=== PATIENT | male | born 1970 | race Caucasian/White ===

== ENCOUNTER → 2017-06-27 10:32 | Outpatient (CLI) | payer MEDICAID, SELFPAY ==
[2017-06-27 13:49] LABS: Basophils # 0.1 K/mm3 (0-0.2); Eosinophils # 0.4 K/mm3 (0.0-0.4); Eosinophils % 3.9 % (0.1-12.0); Hemoglobin 16.5 g/dL (14.1-18.0); Lymphocytes % 22.2 K/mm3 (10-50); Mean Corpuscular Hemoglobin 29.3 pg (27.0-31.2); Mean Corpuscular Volume 88.8 fl (80-94); Mean Platelet Volume 7.9 fl (7.4-10.4); Monocytes # 0.4 K/mm3 (0.1-1.0); Monocytes % 4.5 % (1.7-9.3); Neutrophils # 6.2 K/mm3 (1.8-7.8); Neutrophils % 68.5 % (37.0-80.0); Platelet Count 229 K/mm3 (142-424); Red Blood Count 5.63 M/mm3 (4.60-6.20); Red Cell Distribution Width 14.1 % (11.5-17.5)
[2017-06-27 14:11] LABS: Alanine Aminotransferase 51 U/L (12-78); Albumin Level 4.3 gm/dL (3.4-5.0); Albumin/Globulin Ratio 1.2 (1.1-1.8); Alkaline Phosphatase 124 U/L (46-116); Anion Gap 15.5 mEq/L (5-15); Aspartate Amino Transferase 20 U/L (15-37); Bilirubin,Total 0.6 mg/dL (0.2-1.0); Blood Urea Nitrogen 13 mg/dL (7-18); Calcium 9.5 mg/dL (8.5-10.1); Carbon Dioxide 25 mmol/L (21.0-32.0); Chloride 101 mmol/L (98-107); Chol/HDL Ratio 7.4 (1-3.5); Cholesterol 305 mg/dL (140-200); Creatinine,Serum 1.02 mg/dL (0.70-1.30); Estimated Glomerular Filt Rate 79 ml/min (>60); GFR (African American) 96 ML/MIN (>60); Globulin 3.7 gm/dl (1.3-3.2); Glucose 202 mg/dL (74-106); HDL Cholesterol 41 mg/dL (27-67); Potassium 4.5 mmoL/L (3.5-5.1); Sodium 137 mmol/L (136-145)
[2017-06-27 14:12] LABS: Triglycerides 481 mg/dL (30-200)
[2017-06-27 14:43] LABS: Hemoglobin A1C 7.5 % (0.0-7.0)
[2017-06-28 18:25] LABS: Testosterone,Total 369 ng/dL (264-916)
[2017-06-28 18:26] LABS: Vitamin B12 980 pg/mL (232-1245)
== END ==
PROVIDERS: PCP Internal Medicine Adolescent Medicine; Visit Provider Internal Medicine Adolescent Medicine
DX: E11.9 Type 2 diabetes mellitus without complications (principal); R53.83 Other fatigue; E78.5 Hyperlipidemia, unspecified
CPT/HCPCS: 36415; 80053; 80061; 82607; 83036; 84403; 85025

== ENCOUNTER 2017-08-01 13:00 | Outpatient (RCR) | payer MEDICAID, SELFPAY | END 2017-08-01 16:53 | disposition home or self-care (01) | LOC: PT 13:00 | PROVIDERS: PCP Internal Medicine Adolescent Medicine; Visit Provider Physician Assistant Medical | DX: S32.409A Unspecified fracture of unspecified acetabulum, initial encounter for closed fracture (principal); S52.023A Displaced fracture of olecranon process without intraarticular extension of unspecified ulna, initial encounter for closed fracture | CPT/HCPCS: 97110 ==

== ENCOUNTER → 2017-11-28 11:38 | Outpatient (CLI) | payer MEDICAID, SELFPAY ==
--- NOTE | 2017-11-28 11:46 | XR_ITS ---
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 Mild multilevel degenerative disc disease from L1 to L5 worse at L2-L3 with mild multilevel osteophyte formation at L2-L3 and L4. There is slight decrease in height anteriorly of T12 T11 and L1. This may be developmental. There are no previous exams available for comparison. Postsurgical changes are present with bone plates along the left ilium and ischium. No lytic or blastic change. IMPRESSION: Degenerative disc disease with osteophytosis, no acute finding
== END ==
PROVIDERS: PCP Internal Medicine Adolescent Medicine; Visit Provider Internal Medicine Adolescent Medicine
DX: M54.5 Low back pain (principal)
CPT/HCPCS: 72110

== ENCOUNTER → 2017-12-30 12:45 | Outpatient (POV) | payer MEDICAID, SELFPAY ==
[2017-12-30 13:06] VITALS: BP 110/79; PULSE 95; RESP 18; O2SAT 98
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
== END ==
PROVIDERS: PCP Internal Medicine Adolescent Medicine; Visit Provider Clinical Nurse Specialist Family Health
DX: M51.16 Intervertebral disc disorders with radiculopathy, lumbar region (principal); M25.78 Osteophyte, vertebrae; V89.2XXA Person injured in unspecified motor-vehicle accident, traffic, initial encounter
CPT/HCPCS: 99202

== ENCOUNTER → 2018-01-09 10:24 | Outpatient (CLI) | payer MEDICAID, SELFPAY ==
--- NOTE | 2018-01-09 10:26 | MR_ITS ---
MR lumbar spine wo con, MR 3-d myelogram/MRCP HISTORY: PT states low back pain . ITS.REASON: BACK PAIN ORDERING PHYSICIAN: Nayeli Servin PATIENT AGE: 47 years Comparison: X-RAY 11/28/17 TECHNIQUE: Standard multiplanar multiecho sequences are performed without contrast. 3-D MIP and myelographic images are also rendered and reviewed FINDINGS: There is normal alignment. The spinal cord ends at the T12-L1 level. T11-T12 and T12-L1 have an unremarkable appearance. L1-L2: Mild degenerative disc disease with minimal concentric bulging disc with mild bilateral foraminal narrowing. L2-L3: Degenerative disc disease with concentric bulging disc with mild facet and ligamentum flavum hypertrophy with mild bilateral foraminal narrowing. Small endplate osteophytes are present anteriorly. L3-L4: Degenerative disc disease with concentric bulging disc along with facet and ligamentum flavum hypertrophy left greater than right severe left-sided foraminal narrowing and moderate to severe right foraminal narrowing along with left lateral recess narrowing. There is some mild impingement upon the left L4 nerve root from the lateral recess narrowing as well as impingement upon the exiting L3 nerve root on the left. Type I endplate changes are present at this level with a Schmorl's node along the inferior endplate of L3 and superior endplate of L4. There is very minimal right paracentral disc protrusion also abutting the right L4 nerve root. L4-L5: Degenerative disc disease with bulging disc and minimal central disc protrusion slightly eccentric toward the right along with facet and ligamentum flavum hypertrophy with moderate to severe right foraminal narrowing and moderate left foraminal narrowing. Schmorl's node is present along the superior endplate of L5.. There is mild bilateral foraminal narrowing. L5-S1: Concentric bulging disc with minimal right foraminal disc protrusion Artifact is present from orthopedic hardware in the left pelvis. IMPRESSION: 1. Abnormal MRI of the lumbar spine with multilevel degenerative disc disease along with bulging and protruding discs are and facet and ligamentum flavum hypertrophy with foraminal lateral recess narrowing. Please above for detailed description at each level 2. Degenerative disc disease at L3-L4 with concentric bulging disc along with facet and ligamentum flavum hypertrophy left greater than right severe left-sided foraminal narrowing and moderate to severe right foraminal narrowing along with left lateral recess narrowing. There is some mild impingement upon the left L4 nerve root from the lateral recess narrowing as well as impingement upon the exiting L3 nerve root on the left. Type I endplate changes are present at this level with a Schmorl's node along the inferior endplate of L3 and superior endplate of L4. There is very minimal right paracentral disc protrusion also abutting the right L4 nerve root
== END ==
PROVIDERS: PCP Internal Medicine Adolescent Medicine; Visit Provider Clinical Nurse Specialist Family Health
DX: M54.5 Low back pain (principal)
CPT/HCPCS: 72148; 76376

== ENCOUNTER → 2018-01-20 13:17 | Outpatient (POV) | payer MEDICAID, SELFPAY ==
[2018-01-20 13:30] VITALS: BP 169/90; PULSE 87; RESP 18; O2SAT 98; BMI 36.5
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
== END ==
PROVIDERS: PCP Internal Medicine Adolescent Medicine; Visit Provider Clinical Nurse Specialist Family Health
DX: M51.16 Intervertebral disc disorders with radiculopathy, lumbar region (principal); M48.061 Spinal stenosis, lumbar region without neurogenic claudication
CPT/HCPCS: 99213

== ENCOUNTER → 2018-02-24 13:01 | Outpatient (POV) | payer MEDICAID, SELFPAY ==
[2018-02-24 13:41] VITALS: BP 135/86; PULSE 80; RESP 18; O2SAT 98; BMI 34.4
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
== END ==
PROVIDERS: PCP Internal Medicine Adolescent Medicine; Visit Provider Clinical Nurse Specialist Family Health
DX: M51.16 Intervertebral disc disorders with radiculopathy, lumbar region (principal)
CPT/HCPCS: 99213

== ENCOUNTER → 2018-04-29 10:21 | Outpatient (POV) | payer MEDICAID, SELFPAY ==
[2018-04-29 10:38] VITALS: BP 133/84; PULSE 82; RESP 18; O2SAT 98; BMI 34.4
--- NOTE | 2018-04-29 10:56 | HMH.PAINSOAP ---
[facility] Pain Management SOAP Note Subjective:: Patient is a pleasant 47-year-old white male who presents today for follow-up after his lumbar epidural steroid injection. Patient did not have much relief with this. Patient has been deemed not a surgical candidate by his neurosurgeon. Patient has completed physical therapy with no success. Patient continues a home stretching program. Patient is on anti-inflammatories along with gabapentin 300 mg 1 p.o. 3 times daily. Patient does have an MRI showing nerve impingement. Along with degenerative disc disease. He rates his pain a 8 out of 10. Patient and I had a long discussion in regards to intrathecal therapy. Patient interested in pursuing this. I do believe it would be beneficial for him given his age. I have concerns with oral opioids at this time due to potential systemic dysfunction long-term. ROS General: no recent weight change, no fever, no sleep disturbances Respiratory: no cough, no shortness of air, no recurring pulmonary infections Cardiovascular/Peripheral Vascular: No chest pain, No palpitations, no edema, no shortness of breath. Gastrointestinal: no incontinence, normal bowel movements reported Genitourinary: no incontinence Musculoskeletal: Back pain, leg pain Psychiatric: normal mood/ affect Neurological: [denies weakness in extremities], [denies balance issues] Objective:: Physical Exam General: Alert and oriented x3, no acute distress, pleasant and cooperative, [on room air] Lungs: Resps E/U, Symmetrical chest expansion, Eyes: PERRL Musculoskeletal: Flexion and extension of lumbar spine somewhat guarded secondary to pain, deep tendon reflexes normal, strength in upper and lower extremities [5/5], slightly antalgic gait noted, positive straight leg raise test bilaterally at 30 degrees Neurological: speech clear, high lift operator equal, no gross sensory deficits Assessment:: Degenerative disc disease lumbar spine with lumbar radiculopathy, disc bulge, nerve impingement Plan:: We will start the process of getting approved for intrathecal pain pump trial. I believe this would metal for him. Patient will go for psychological evaluation. I will follow-up with him after this. This note was dictated using voice recognition software and may contain errors or omissions
== END ==
PROVIDERS: PCP Internal Medicine Adolescent Medicine; Visit Provider Clinical Nurse Specialist Family Health
DX: M51.16 Intervertebral disc disorders with radiculopathy, lumbar region (principal); G54.4 Lumbosacral root disorders, not elsewhere classified
CPT/HCPCS: 99213

== ENCOUNTER → 2018-07-21 14:07 | Outpatient (POV) | payer MEDICAID, SELFPAY ==
--- NOTE | 2018-07-21 15:00 | HMH.PAINSOAP ---
[facility] Pain Management SOAP Note Subjective:: Patient is a pleasant 47-year-old white male who presents today for follow-up. Patient has had multiple injections with no relief. He has been deemed not a surgical candidate by his neurosurgeon. He is completed physical therapy with no success. Patient continues a home stretching program. He is on anti-inflammatories along with gabapentin. Patient has an MRI showing nerve impingement along with degenerative disc disease. He rates his pain a 8 out of 10. Patient and I had a long discussion in regards to intrathecal therapy would like to pursue this. Patient was set up for a cytological evaluation however he was unable to make the appointment. We will reschedule this for him. ROS General: no recent weight change, no fever, no sleep disturbances Respiratory: no cough, no shortness of air, no recurring pulmonary infections Cardiovascular/Peripheral Vascular: No chest pain, No palpitations, no edema, no shortness of breath. Gastrointestinal: no incontinence, normal bowel movements reported Genitourinary: no incontinence Musculoskeletal: Back pain, leg pain Psychiatric: normal mood/ affect Neurological: [denies weakness in extremities], [denies balance issues] Objective:: Physical Exam General: Alert and oriented x3, no acute distress, pleasant and cooperative, [on room air] Lungs: Resps E/U, Symmetrical chest expansion, Eyes: PERRL Musculoskeletal: Flexion and extension of lumbar spine somewhat guarded secondary to pain, deep tendon reflexes normal, strength in upper and lower extremities [5/5], [abnormal gait noted] Neurological: speech clear, photographer news equal, no gross sensory deficits Assessment:: Degenerative disc disease lumbar spine with lumbar radiculopathy, disc bulge, nerve impingement Plan:: We will start the process of getting approved for intrathecal pain pump trial. I believe this would be beneficial for him. Patient will get set up for psychological evaluation and we will follow-up with him after this. We will increase his gabapentin to 800 mg 1 p.o. 3 times daily. Patient has had no side effects to this medication. Dr. Oconnor has reviewed this note and agrees with this plan of care. This note was dictated using voice recognition software and may contain errors or omissions
[2018-07-21 15:02] VITALS: BP 143/74; PULSE 79; RESP 18; O2SAT 98; BMI 33.7
--- NOTE | 2018-07-22 08:34 | P.CONS_ITS ---
[facility] Pain Management SOAP Note Subjective:: Patient is a pleasant 47-year-old white male who presents today for follow-up. Patient has had multiple injections with no relief. He has been deemed not a surgical candidate by his neurosurgeon. He is completed physical therapy with no success. Patient continues a home stretching program. He is on anti- inflammatories along with gabapentin. Patient has an MRI showing nerve impingement along with degenerative disc disease. He rates his pain a 8 out of 10. Patient and I had a long discussion in regards to intrathecal therapy would like to pursue this. Patient was set up for a cytological evaluation however he was unable to make the appointment. We will reschedule this for him. ROS General: no recent weight change, no fever, no sleep disturbances Respiratory: no cough, no shortness of air, no recurring pulmonary infections Cardiovascular/Peripheral Vascular: No chest pain, No palpitations, no edema, no shortness of breath. Gastrointestinal: no incontinence, normal bowel movements reported Genitourinary: no incontinence Musculoskeletal: Back pain, leg pain Psychiatric: normal mood/ affect Neurological: [denies weakness in extremities], [denies balance issues] Objective:: Physical Exam General: Alert and oriented x3, no acute distress, pleasant and cooperative, [on room air] Lungs: Resps E/U, Symmetrical chest expansion, Eyes: PERRL Musculoskeletal: Flexion and extension of lumbar spine somewhat guarded secondary to pain, deep tendon reflexes normal, strength in upper and lower extremities [5/5], [abnormal gait noted] Neurological: speech clear, mattress finisher equal, no gross sensory deficits Assessment:: Degenerative disc disease lumbar spine with lumbar radiculopathy, disc bulge, nerve impingement Plan:: We will start the process of getting approved for intrathecal pain pump trial. I believe this would be beneficial for him. Patient will get set up for psychological evaluation and we will follow-up with him after this. We will increase his gabapentin to 800 mg 1 p.o. 3 times daily. Patient has had no side effects to this medication. Dr. Oconnor has reviewed this note and agrees with this plan of care. This note was dictated using voice recognition software and may contain errors or omissions
== END ==
PROVIDERS: PCP Internal Medicine Adolescent Medicine; Visit Provider Clinical Nurse Specialist Family Health
DX: M51.16 Intervertebral disc disorders with radiculopathy, lumbar region (principal); G54.9 Nerve root and plexus disorder, unspecified
CPT/HCPCS: 99213

== ENCOUNTER → 2018-09-30 08:18 | Outpatient (POV) | payer MEDICAID, SELFPAY ==
[2018-09-30 08:29] VITALS: BP 133/79; PULSE 68; RESP 18; O2SAT 98; BMI 33.0
--- NOTE | 2018-09-30 15:22 | HMH.PAINSOAP ---
[facility] Pain Management SOAP Note Subjective:: Patient is a very pleasant 48-year-old white male who presents today for follow-up after his intrathecal pain pump trial. Patient has done extremely well patient in the past has had no pain relief after injections, physical therapy, medications, anti-inflammatories, gabapentin, home stretching programs. Patient is continuing his home stretching program. Patient states he got 90% relief with his intrathecal pain pump trial for several hours. He states he is much more functional. He is interested in moving forward with a implant. Patient is an appropriate psychological candidate for it. Patient had an increase in his range of motion post trial. He is not a surgical candidate. He is not on any anticoagulation therapy. ROS General: no recent weight change, no fever, no sleep disturbances Respiratory: no cough, no shortness of air, no recurring pulmonary infections Cardiovascular/Peripheral Vascular: No chest pain, No palpitations, no edema, no shortness of breath. Gastrointestinal: no incontinence, normal bowel movements reported Genitourinary: no incontinence Musculoskeletal: Back pain, leg pain Psychiatric: normal mood/ affect, [denies depression], [denies anxiety] Neurological: [denies weakness in extremities], [denies balance issues] Objective:: Physical Exam General: Alert and oriented x3, no acute distress, pleasant and cooperative, [on room air] Lungs: Resps E/U, Symmetrical chest expansion, Eyes: PERRL Musculoskeletal: Flexion and extension of lumbar spine somewhat guarded secondary to pain, deep tendon reflexes normal, strength in upper and lower extremities [5/5], [abnormal gait noted] Neurological: speech clear, suture winder hand equal, no gross sensory deficits Assessment:: Degenerative disc disease lumbar spine with lumbar radiculopathy, disc bulge, nerve impingement Plan:: We will move forward with a permanent implant of the intrathecal pain pump. Patient is not on any narcotic medications at this time. We will start him on morphine 0.25 mg/day. I will follow-up with him after this reassess his symptoms at that time. Dr. Oconnor has reviewed this note and agrees with this plan of care. This note was dictated using voice recognition software and may contain errors or omissions
[2018-09-30 15:24] LABS: Amphetamine/Metha Screen,Urine Negative ng/mL (<1000); Barbiturates Screen,Urine Negative ng/mL (<200); Benzodiazepines Screen,Urine Negative ng/mL (<200); Cannabinoid Screen,Urine Positive ng/mL (<50); Cocaine Screen,Urine Negative ng/mL (<300); Methadone Screen,Urine Negative ng/mL (<300); Opiate Screen,Urine Negative ng/mL (<300); Phencyclidine Screen,Urine Negative ng/mL (<25)
--- NOTE | 2018-09-30 15:25 | P.CONS_ITS ---
[facility] Pain Management SOAP Note Subjective:: Patient is a very pleasant 48-year-old white male who presents today for follow- up after his intrathecal pain pump trial. Patient has done extremely well patient in the past has had no pain relief after injections, physical therapy, medications, anti-inflammatories, gabapentin, home stretching programs. Patient is continuing his home stretching program. Patient states he got 90% relief with his intrathecal pain pump trial for several hours. He states he is much more functional. He is interested in moving forward with a implant. Patient is an appropriate psychological candidate for it. Patient had an increase in his range of motion post trial. He is not a surgical candidate. He is not on any anticoagulation therapy. ROS General: no recent weight change, no fever, no sleep disturbances Respiratory: no cough, no shortness of air, no recurring pulmonary infections Cardiovascular/Peripheral Vascular: No chest pain, No palpitations, no edema, no shortness of breath. Gastrointestinal: no incontinence, normal bowel movements reported Genitourinary: no incontinence Musculoskeletal: Back pain, leg pain Psychiatric: normal mood/ affect, [denies depression], [denies anxiety] Neurological: [denies weakness in extremities], [denies balance issues] Objective:: Physical Exam General: Alert and oriented x3, no acute distress, pleasant and cooperative, [on room air] Lungs: Resps E/U, Symmetrical chest expansion, Eyes: PERRL Musculoskeletal: Flexion and extension of lumbar spine somewhat guarded secondary to pain, deep tendon reflexes normal, strength in upper and lower extremities [5/5], [abnormal gait noted] Neurological: speech clear, marketing instructor equal, no gross sensory deficits Assessment:: Degenerative disc disease lumbar spine with lumbar radiculopathy, disc bulge, nerve impingement Plan:: We will move forward with a permanent implant of the intrathecal pain pump. Patient is not on any narcotic medications at this time. We will start him on morphine 0.25 mg/day. I will follow-up with him after this reassess his symptoms at that time. Dr. Oconnor has reviewed this note and agrees with this plan of care. This note was dictated using voice recognition software and may contain errors or omissions
[2018-10-08 13:52] LABS: Opiates Negative (Cutoff=100)
== END ==
PROVIDERS: PCP Internal Medicine Adolescent Medicine; Visit Provider Clinical Nurse Specialist Family Health
DX: M51.16 Intervertebral disc disorders with radiculopathy, lumbar region (principal); M25.80 Other specified joint disorders, unspecified joint; Z79.899 Other long term (current) drug therapy
CPT/HCPCS: 80305; 80361; 80365; 99212; G0480

== ENCOUNTER → 2018-10-28 13:44 | Outpatient (POV) | payer MEDICAID, SELFPAY ==
[2018-10-28 13:57] VITALS: BP 168/106; PULSE 97; RESP 20; O2SAT 99; BMI 33.2
--- NOTE | 2018-10-28 14:06 | HMH.PMPROC ---
- Procedure Date: 10/28/18 Time: 14:06 Anesthesiologist:: Nayeli Servin APRN Complications:: None Pre-procedure Diagnosis:: Degenerative disc disease lumbar spine with lumbar radiculopathy Post-procedure Diagnosis:: Same Indications for Procedure:: Patient is a pleasant 48-year-old white male who presents today for follow-up after intrathecal pain pump implantation 1 week ago. Patient's wound VAC was removed incision site healing well no sign symptoms of infection. Stitches are being left in for an additional 2 weeks. He is currently on a morphine dose of 0.25 mg/day. He denies any side effects. We will set his PTC up today. He rates his pain a 6 out of 10 but states it is much better and it was previously. 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 The patient was taken to the procedure room where noninvasive monitoring was placed including noninvasive blood pressure cuff and pulse oximeter. Patient's pump was interrogated and reprogrammed. The infusion rate was left at 0.25 mg of morphine a day and his PTC was set up at 0.025 mg every 6 hours as needed. The patient tolerated the procedure well. Plan and Disposition:: I will see the patient back in 2 weeks for his stitches to be removed. I will follow-up with him at this time. He is been instructed to call our office if he has any issues prior to his next appointment. Dr. Oconnor has reviewed this note and agrees with this plan of care. This note was dictated using voice recognition software and may contain errors or omissions
== END ==
PROVIDERS: PCP Internal Medicine Adolescent Medicine; Visit Provider Clinical Nurse Specialist Family Health
DX: M51.16 Intervertebral disc disorders with radiculopathy, lumbar region (principal)
CPT/HCPCS: 62368

== ENCOUNTER → 2018-11-11 13:15 | Outpatient (POV) | payer MEDICAID, SELFPAY ==
[2018-11-11 13:40] VITALS: BP 147/96; PULSE 84; RESP 18; O2SAT 97; BMI 33.7
--- NOTE | 2018-11-11 14:01 | HMH.PAINSOAP ---
[facility] Pain Management SOAP Note Subjective:: Patient is a pleasant 48-year-old white male who presents today for intrathecal pain pump implantation follow-up he is doing extremely well he rates his pain a 1 out of 10. Patient is currently on a infusion rate of 0.25 mg of morphine a day and he has a PTC with every 6 hour as needed boluses set at 0.025 mg per time. Patient's TERESA #[id number] reviewed and appropriate. Patient denies side effects to his medication. Patient's sutures have been removed and his incision looks well-healed. ROS General: no recent weight change, no fever, no sleep disturbances Respiratory: no cough, no shortness of air, no recurring pulmonary infections Cardiovascular/Peripheral Vascular: No chest pain, No palpitations, no edema, no shortness of breath. Gastrointestinal: no incontinence, normal bowel movements reported Genitourinary: no incontinence Musculoskeletal: Back pain, leg pain Psychiatric: normal mood/ affect Neurological: [denies weakness in extremities], [denies balance issues] Objective:: Physical Exam General: Alert and oriented x3, no acute distress, pleasant and cooperative, [on room air] Lungs: Resps E/U, Symmetrical chest expansion, Eyes: PERRL Musculoskeletal: Flexion and extension of lumbar spine somewhat guarded secondary to pain, deep tendon reflexes normal, strength in upper and lower extremities [5/5], slightly antalgic gait noted Neurological: speech clear, burglar alarm installer equal, no gross sensory deficits Assessment:: Degenerative disc disease lumbar spine with lumbar radiculopathy Plan:: We will see the patient back at his next intrathecal pain pump refill and reprogram. He has been instructed to call the office if he has any issues prior to his next appointment. Dr. Oconnor has reviewed this note and agrees with this plan of care. This note was dictated using voice recognition software and may contain errors or omissions
--- NOTE | 2018-11-11 14:04 | P.CONS_ITS ---
[facility] Pain Management SOAP Note Subjective:: Patient is a pleasant 48-year-old white male who presents today for intrathecal pain pump implantation follow-up he is doing extremely well he rates his pain a 1 out of 10. Patient is currently on a infusion rate of 0.25 mg of morphine a day and he has a PTC with every 6 hour as needed boluses set at 0.025 mg per time. Patient's TERESA #[id number] reviewed and appropriate. Patient denies side effects to his medication. Patient's sutures have been removed and his incision looks well-healed. ROS General: no recent weight change, no fever, no sleep disturbances Respiratory: no cough, no shortness of air, no recurring pulmonary infections Cardiovascular/Peripheral Vascular: No chest pain, No palpitations, no edema, no shortness of breath. Gastrointestinal: no incontinence, normal bowel movements reported Genitourinary: no incontinence Musculoskeletal: Back pain, leg pain Psychiatric: normal mood/ affect Neurological: [denies weakness in extremities], [denies balance issues] Objective:: Physical Exam General: Alert and oriented x3, no acute distress, pleasant and cooperative, [on room air] Lungs: Resps E/U, Symmetrical chest expansion, Eyes: PERRL Musculoskeletal: Flexion and extension of lumbar spine somewhat guarded secondary to pain, deep tendon reflexes normal, strength in upper and lower extremities [5/5], slightly antalgic gait noted Neurological: speech clear, tenter frame back tender equal, no gross sensory deficits Assessment:: Degenerative disc disease lumbar spine with lumbar radiculopathy Plan:: We will see the patient back at his next intrathecal pain pump refill and reprogram. He has been instructed to call the office if he has any issues prior to his next appointment. Dr. Oconnor has reviewed this note and agrees with this plan of care. This note was dictated using voice recognition software and may contain errors or omissions
== END ==
PROVIDERS: PCP Internal Medicine Adolescent Medicine; Visit Provider Clinical Nurse Specialist Family Health
DX: M51.16 Intervertebral disc disorders with radiculopathy, lumbar region (principal)
CPT/HCPCS: 99212

== ENCOUNTER → 2018-12-02 10:07 | Outpatient (POV) | payer MEDICAID, SELFPAY ==
[2018-12-02 10:08] VITALS: BP 161/95; PULSE 85; RESP 18; O2SAT 98; BMI 33.7
--- NOTE | 2018-12-02 10:59 | P.PCN_ITS ---
- Procedure Date: 12/02/18 Time: 10:56 Anesthesiologist:: Cristina Barnes APRN Complications:: None Pre-procedure Diagnosis:: Degenerative disc disease lumbar spine with lumbar radiculopathy Post-procedure Diagnosis:: Same Indications for Procedure:: Patient is a pleasant 48-year-old white male who presents today for intrathecal pain pump adjustment. He is currently on an infusion rate of 0.25 mg of morphine a day and has a PTC with every 6 hour as needed boluses set at 0.025 mg. Patient says he does not use his PTC that often, only using it to to 3 times a day. He does report that he is having increased pain due to increased activity. He would like an increase in his medication today. He denies any side effects to medications. His incision does look good, and is well-healed. 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 Patient was taken to the procedure room where noninvasive monitoring was placed including noninvasive blood pressure cuff and pulse oximeter. Patient's pump was interrogated and was reprogrammed to 0.1 mg morphine per day.. The patient tolerated the procedure well with no complications. Plan and Disposition:: We will see the patient back at his next intrathecal pain pump refill and reprogram. He is been instructed to call the office if he has any issues prior to his next appointment. Dr. Oocnnor has reviewed this note and agrees with this plan of care. This note was dictated using voice recognition software and make contain errors or omissions.
== END ==
PROVIDERS: PCP Internal Medicine Adolescent Medicine; Visit Provider Clinical Nurse Specialist Family Health
DX: M51.16 Intervertebral disc disorders with radiculopathy, lumbar region (principal)
CPT/HCPCS: 62368

== ENCOUNTER → 2019-04-09 11:53 | Outpatient (CLI) | payer MEDICAID, SELFPAY ==
[2019-04-09 14:36] LABS: Amphetamine/Metha Screen,Urine Negative ng/mL (<1000); Barbiturates Screen,Urine Negative ng/mL (<200); Benzodiazepines Screen,Urine Negative ng/mL (<200); Cannabinoid Screen,Urine Positive ng/mL (<50); Cocaine Screen,Urine Negative ng/mL (<300); Methadone Screen,Urine Negative ng/mL (<300); Opiate Screen,Urine Negative ng/mL (<300); Phencyclidine Screen,Urine Negative ng/mL (<25)
[2019-04-15 19:11] LABS: Cannabinoid Positive (.); Carboxy THC (GC/MS) 129 ng/mL (Cutoff=10)
[2019-04-16 08:12] LABS: Opiates Negative (Cutoff=100)
== END ==
PROVIDERS: Visit Provider Clinical Nurse Specialist Family Health
DX: Z79.899 Other long term (current) drug therapy (principal)
CPT/HCPCS: 80305; 80349; 80361; 80365; G0480

== ENCOUNTER → 2020-07-19 09:44 | Outpatient (POV) | payer OTHER, SELFPAY ==
[2020-07-19 09:51] VITALS: BP 148/88; PULSE 74; RESP 18; TEMP 36.8; O2SAT 99; BMI 33.0
--- NOTE | 2020-07-19 10:05 | P.CONS_ITS ---
[facility] Pain Management SOAP Note Subjective:: Patient presents today for follow-up. Patient has intrathecal pain pump. He has had 2 inappropriate drug screens with illegal drugs he has been counseled both times in regards to this. Patient was seen last in February at our [place] location where he was filled. Patient states he forgot when his appointment wants to have it refilled and states that he did not know the phone number since then he has pump has run empty. He was on 0.67 mg of morphine. Patient states that he is gone through withdrawal and has been taking somebody's Percocet along with smoking marijuana. At this point I discussed with him that this is a breech of our contract were not can be able to provide any further m edicinal care. Patient is frustrated and upset stating that he is in excruciating pain I offered that he is welcome to go to the emergency room and he agreed. I did speak to Dr. Ty in regards to this. And he is agreeable with the discharge. Objective:: Physical Exam General: Alert and oriented x3, no acute distress, pleasant and cooperative, [on room air] Lungs: Resps E/U, Symmetrical chest expansion, Eyes: PERRL Musculoskeletal: Flexion and extension of her spine somewhat guarded secondary to pain, deep tendon reflexes normal, strength in upper and lower extremities [5/5], [abnormal gait noted] Neurological: speech clear Assessment:: Degenerative disc disease lumbar spine lumbar radiculopathy Plan:: Patient will be discharged from the clinic. Patient left and went to the ER. ER was contacted. We will also contact his primary care physician. I did offer to give the patient names of other pain physicians at this time he stated that I can give that to his primary care. Patient states that he needs to have his pain pump filled today I discussed with him that that would not happen regard less of where he establish care. Dr. Oconnor has reviewed this note and agrees with this plan of care. This note was dictated using voice recognition software and may contain errors or omissions [facility] History I have reviewed the patient's past medical history: Yes Medical History: Reports:: Anxiety, Depression, Diabetes Mellitus Type 2, Hyperlipidemia, Hypertension Denies:: Cancer, Diabetes Mellitus Type 1, Internal Pacemaker, MRSA, Seizures *Have you ever received a pneumonia vaccine?: Yes *Have you received a flu vaccine this season?: Yes Other Medical History: Reports: Other (Obesity). Denies: Blood Transfusion Reaction Laterality Cases: Left: Other Other Surgeries: Yes: Other (Left arm ORIF, Left hip ORIF). No: Pacemaker Amputation: No Fractures: No - *Social History Smoking Status: Never smoker Alcohol Intake: never *Occupational Status:: other Housing: house Household Members: none *Travel in the last 8 weeks: None - Psychiatric History Pschychiatric History:: Reports:: Anxiety, Depression Family Hx:: Coronary Artery Disease, Heart Attack, Hypertension
== END ==
PROVIDERS: PCP Internal Medicine Adolescent Medicine; Visit Provider Clinical Nurse Specialist Family Health
DX: M51.16 Intervertebral disc disorders with radiculopathy, lumbar region (principal); Z45.1 Encounter for adjustment and management of infusion pump
CPT/HCPCS: 99212; G0463

== ENCOUNTER 2020-07-19 10:11 | Emergency (ER) | payer OTHER, SELFPAY ==
--- NOTE | 2020-07-19 10:16 | HMH.EDGENADL ---
ED Disposition Clinical Impression: Lumbar back pain Disposition: Home, Self-Care Condition on Discharge: Good Instructions: DI for Low Back Pain, DI for Chronic Pain -- Adult Additional Instructions: You have been evaluated for low back pain. Please take anti-inflammatories as prescribed. Use Lidoderm patches. Use heat, stretching, exercises. Follow-up with your primary care physician before the end of the week. Follow-up with pain clinic for intrathecal medication. Return to the emergency department for any new or worsening symptoms. Prescriptions: Ibuprofen [Ibuprofen 600mg Tablet] 600 mg PO Q8 #21 tab Transmission Status: Pending to [facility] # Lidocaine [Lidoderm] 1 each TP DAILY #10 adh..patch Transmission Status: Pending to [facility] # Referrals: Vish Barakat MD [Primary Care Provider] - Time of Disposition: - Critical Care Critical Care Time: No Attestation: On , the high probability of a clinically significant, sudden or life threatening deterioration of the following system(s) required my full and direct attention, intervention and personal management. The time I documented below is in addition to time spent performing reported procedures but includes the following listed in this critical care notation. Medical Decision Making - Medical Records Medical records reviewed: Yes: I reviewed the patient's medical records. - Terrance Inquiry Pt receiving controlled substance: Yes Terrance was queried for this patient: Yes Reference #:: [id number] Risks and benefits of using a controlled substance: were discussed with pt by me Vital Signs: 07/19/20 10:18 Temperature 98.6 F Temperature Source Oral Pulse Rate [Left Radial] 114 H Respiratory Rate 20 Blood Pressure [Right Arm] 152/99 H Blood Pressure Mean [Right Arm] 116 Blood Pressure Source [Right Arm] Automatic Cuff Blood Pressure Position [Right Arm] Sitting 02 Sat by Pulse Oximetry 98 Oxygen Delivery Method Room Air - Lab Data Lab Results 07/19/20 10:42: Urine Opiates Screen Negative, Urine Methadone Screen Negative, Ur Barbituates Screen Negative, Ur Phencyclidine Scrn Negative, Ur Amphetamines Screen Negative, U Benzodiazepines Scrn Negative, Urine Cocaine Screen Negative, U Marijuana (THC) Screen Positive H 07/19/20 10:42: Urine Color Yellow, Urine Appearance Clear, Urine pH 6.0, Ur Specific [place] 1.025, Urine Protein Negative, Urine Glucose (UA) 3+, Urine Ketones Trace, Urine Blood Negative, Urine Nitrate Negative, Urine Bilirubin Negative, Urine Urobilinogen 0.2, Ur Leukocyte Esterase Negative, Urine WBC 3-5, Ur Squamous Epith Cells 3-5 Orders (Tests/Meds): ED MEDICATIONS Discontinued Medications Generic Name Dose Route Start Last Admin Trade Name Nichole PRN Reason Stop Dose Admin Ketorolac Tromethamine 15 mg 07/19/20 10:31 07/19/20 10:39 Ketorolac 30mg/Ml Vial IM 07/19/20 10:32 15 mg ONCE ONE Administration Lidocaine 1 each 07/19/20 10:31 07/19/20 10:40 Lidocaine 5% Transdermal Patch TP 07/19/20 10:32 1 each ONCE ONE Administration - Radiology Data #1 Image(s): L-Spine Image Reviewed: Yes I reviewed the patient's radiology results mri 2017 IMPRESSION: 1. Abnormal MRI of the lumbar spine with multilevel degenerative disc disease along with bulging and protruding discs are and facet and ligamentum flavum hypertrophy with foraminal lateral recess narrowing. Please above for detailed description at each level 2. Degenerative disc disease at L3-L4 with concentric bulging disc along with facet and ligamentum flavum hypertrophy left greater than right severe left-sided foraminal narrowing and moderate to severe right foraminal narrowing along with left lateral recess narrowing. There is some mild impingement upon the left L4 nerve root from the lateral recess narrowing as well as impingement upon the exiting L3 nerve root on the left. Type I endplate change
[2020-07-19 10:18] VITALS: BP 152/99; PULSE 114; RESP 20; TEMP 37; O2SAT 98; BMI 32.0
--- NOTE | 2020-07-19 10:20 | PC.NURSE ---
Pt in restroom at this time.
[2020-07-19 10:47] LABS: Microscopic, Urine URINE MICROSCOPIC (MICROSCOPIC)
[2020-07-19 10:49] LABS: Appearance,Urine CLEAR (Clear); Bilirubin,Urine Negative (Negative); Blood, Urine Negative (Negative); Color,Urine YELLOW (Yellow); Glucose,Urine (UA) 3+ (Negative); Ketones,Urine TRACE (Negative); Leukocyte Esterase,Urine Negative (Negative); Nitrate,Urine Negative (Negative); Protein,Urine Negative (Negative); Specific Gravity, Urine 1.025 (1.005-1.030); Urobilinogen,Urine 0.2 EU/dl (0.2)
[2020-07-19 11:01] LABS: Benzodiazepines Screen,Urine Negative ng/ml (<200)
[2020-07-19 11:02] LABS: Amphetamine/Metha Screen,Urine Negative ng/ml (<1000)
[2020-07-19 11:03] LABS: Barbiturates Screen,Urine Negative ng/ml (<200); Cannabinoid Screen,Urine Positive ng/ml (<50)
[2020-07-19 11:04] LABS: Cocaine Screen,Urine Negative ng/ml (<300); Methadone Screen,Urine Negative ng/ml (<300)
[2020-07-19 11:05] LABS: Opiate Screen,Urine Negative ng/ml (<300)
[2020-07-19 11:06] LABS: Phencyclidine Screen,Urine Negative ng/ml (<25)
[2020-07-19 11:30] VITALS: BP 147/92; PULSE 104; RESP 18; TEMP 36.7; O2SAT 97
== END 2020-07-19 11:32 | disposition home or self-care (01) ==
PROVIDERS: Emergency Provider Emergency Medicine; PCP Internal Medicine Adolescent Medicine
DX: M54.16 Radiculopathy, lumbar region (principal); E11.9 Type 2 diabetes mellitus without complications; I10 Essential (primary) hypertension; E78.5 Hyperlipidemia, unspecified; F41.8 Other specified anxiety disorders; F12.10 Cannabis abuse, uncomplicated; Z79.899 Other long term (current) drug therapy
CPT/HCPCS: 80305; 81001; 96372; 99282

== ENCOUNTER → 2020-10-10 08:27 | Outpatient (CLI) | payer OTHER, SELFPAY ==
[2020-10-11 09:22] LABS: Hemoglobin A1C > 14.0 % (4.0-6.0)
== END ==
PROVIDERS: Visit Provider Internal Medicine Adolescent Medicine
DX: E11.9 Type 2 diabetes mellitus without complications (principal); Z79.84 Long term (current) use of oral hypoglycemic drugs
CPT/HCPCS: 83036

== ENCOUNTER 2025-02-25 09:23 | Inpatient (IN) | payer OTHER, SELFPAY ==
--- OUTSIDE RECORDS SUMMARY | 2024-07-17 09:00 | XMS_ITS ---
Author Organization [facility] Address [address] [place] [address] Care Team Providers Care Animal Nutrition Consultant Name Role Phone Reyes Landers II Unavailable Oliva, Ciaran Unavailable [phone] REASON FOR VISIT pump refill Encounters Encounter Location Date Provider Diagnosis [facility] [address] [place] [address] 07/17/2024 Reyes Landers Plan Of Treatment Next Appt Details Provider Name:Reyes faustin, 06/18/2025 01:00:00 PM, [address], [address], [place], [address], Provider Name:Reyes faustin, 06/18/2025 03:30:00 PM, [address], [address], [place], [address], Progress Notes * Jeffery RONQUILLO ADOB:[birth year] (54 yo M)Acc No.[id number]:07/17/2024 Patient: Larry ETTA Jeffery Gaytan Provider: Mike Landers II, M.D. :1970 A ge:54 Y S ex:Male Date:07/17/2024 Address:[address], [place] Subjective: * Chief Complaints: * 1 . Pump refill. * Medical History: Objective: * Vitals: Assessment: Plan: * Treatment: * * Electronic signature of Can Landers II, M.D. on 02/26/2025 at 12:00 PM CDT Sign off status: Pending * Provider: Mike Landers II, M.D. Date: 07/17/2024 Generated for Zohra poole/Angelica/Kristopher on: 0 02/26/2025 12:00 PM CDT
--- OUTSIDE RECORDS SUMMARY | 2024-07-17 09:00 | XMS_ITS ---
Author Organization [facility] Address [address] [place] [address] Care Team Providers Care Checkman Name Role Phone Reyes Landers II Unavailable [phone] Oliva, Ciaran Unavailable [phone] REASON FOR VISIT pump refill Encounters Encounter Location Date Provider Diagnosis [facility] [address] [place] [address] 07/17/2024 Reyes Landers Plan Of Treatment Next Appt Details Provider Name:Reyes faustin, 06/18/2025 01:00:00 PM, [address], [address], [place], [address], Provider Name:Reyes faustin, 06/18/2025 03:30:00 PM, [address], [address], [place], [address], Progress Notes * Jeffery RONQUILLO ADOB:[birth year] (54 yo M)Acc No.[id number]:07/17/2024 Patient: Larry ETTA Jeffery Gaytan Provider: Mike Landers II, M.D. :1970 A ge:54 Y S ex:Male Date:07/17/2024 Address:[address], [place] Subjective: * Chief Complaints: * 1 . Pump refill. * Medical History: Objective: * Vitals: Assessment: Plan: * Treatment: * * Electronic signature of Can Landers II, M.D. on 02/25/2025 at 08:39 AM CDT Sign off status: Pending * Provider: Mike Landers II, M.D. Date: 0 07/17/2024 Generated for Zohra poole/Angelica/Kristopher on: 0 02/25/2025 08:39 AM CDT
--- OUTSIDE RECORDS SUMMARY | 2024-11-06 09:30 | XMS_ITS ---
Author Organization [facility] ex Address [address] [place] [address] Care Team Providers Care Math Tutor Name Role Phone Reyes Landers II Unavailable Oliva, Ciaran Unavailable [phone] REASON FOR VISIT pump refill Encounters Encounter Location Date Provider Diagnosis [facility] [address] [place] [address] 11/06/2024 Reyes Landers Plan Of Treatment Next Appt Details Provider Name:Reyes faustin, 06/18/2025 01:00:00 PM, [address], [address], [place], [address], Provider Name:Reyes faustin, 06/18/2025 03:30:00 PM, [address], [address], [place], [address], Progress Notes * Jeffery RONQUILLO ADOB:[birth year] (54 yo M)Acc No.[id number]:11/06/2024 Patient: Larry ETTA Jeffery Gaytan Provider: Mike [...] 0 11/06/2024 Generated for Zohra poole/Angelica/Kristopher on: 0 02/25/2025 08:39 AM CDT
--- OUTSIDE RECORDS SUMMARY | 2024-11-06 09:30 | XMS_ITS ---
Author Organization [facility] Address [address] [place] [address] Care Team Providers Care Acrobatic Rigger Name Role Phone Reyes Landers II Unavailable Oliva, Ciaran Unavailable [phone] REASON FOR VISIT pump refill Encounters Encounter Location Date Provider Diagnosis [facility] [address] [place] [address] 11/06/2024 Reyes Landers Plan Of Treatment Next Appt Details Provider Name:Reyes faustin, 06/18/2025 01:00:00 PM, [address], [address], [place], [address], Provider Name:Reyes faustin, 06/18/2025 03:30:00 PM, [address], [address], [place], [address], Progress Notes * Jeffery RONQUILLO ADOB:[birth year] (54 yo M)Acc No.[id number]:11/06/2024 Patient: Larry ETTA Jeffery Gaytan Provider: Mike Landers II, M.D. :1970 A ge:54 Y S ex:Male Date:11/06/2024 Address:[address], [place] Subjective: * Chief Complaints: * 1 . Pump refill. * Medical History: Objective: * Vitals: Assessment: Plan: * Treatment: * * Electronic signature of Can Landers II, M.D. on 02/26/2025 at 12:01 PM CDT Sign off status: Pending * Provider: Mike Landers II, M.D. Date: 0 11/06/2024 Generated for Zohra poole/Angelica/Kristopher on: 0 02/26/2025 12:01 PM CDT
--- OUTSIDE RECORDS SUMMARY | 2025-02-19 11:30 | XMS_ITS ---
Author Organization [facility] ex Address [address] [place] [address] Care Team Providers Care Party Plan Sales Consultant Name Role Phone Reyes Landers II Unavailable [phone] Oliva, Ciaran Unavailable [phone] REASON FOR VISIT Pump Follow Up Encounters Encounter Location Date Provider Diagnosis [facility] [address] [place] [address] 02/19/2025 Reyes Landers Plan Of Treatment Next Appt Details Provider Name:Reyes faustin, 06/18/2025 01:00:00 PM, [address], [address], [place], [address], Provider Name:Reyes faustin, 06/18/2025 03:30:00 PM, [address], [address], [place], [address], Progress Notes * Jeffery RONQUILLO ADOB:[birth year] (54 yo M)Acc No.[id number]:02/19/2025 FollowUP Patient: Larry ETTA Jeffery Gaytan Provider: Mike Landers II, M.D. :1970 A ge:54 Y S ex:Male Date:02/19/2025 Address:[address], [place] Subjective: * Chief Complaints: * 1 . Pump Follow Up. * Medical History: Objective: * Vitals: Assessment: Plan: * Treatment: * * Electronic signature of Can Landers II, M.D. on 02/25/2025 at 08:40 AM CDT Sign off status: Pending * Provider: Mike Landers II, M.D. Date: 02/19/2025 Generated for Zohra poole/Angelica/Kristopher on: 0 02/25/2025 08:40 AM CDT
--- OUTSIDE RECORDS SUMMARY | 2025-02-19 11:30 | XMS_ITS ---
Author Organization [facility] ex Address [address] [place] [address] Care Team Providers Care Lapping Machine Operator Name Role Phone Reyes Landers II Unavailable Oliva, Ciaran Unavailable [phone] REASON FOR VISIT Pump Follow Up Encounters Encounter Location Date Provider Diagnosis [facility] [address] [place] [address] 02/19/2025 Reyes Landers Plan Of Treatment Next Appt Details Provider Name:Reyes faustin, 06/18/2025 01:00:00 PM, [address], [address], [place], [address], Provider Name:Reyes faustin, 06/18/2025 03:30:00 PM, [address], [address], [place], [address], Progress Notes * Jeffery RONQUILLO ADOB:[birth year] (54 yo M)Acc No.[id number]:02/19/2025 FollowUP Patient: Larry ETTA Jeffery Gaytan Provider: [...] 02/19/2025 Generated for Zohra poole/Angelica/Kristopher on: 0 02/26/2025 12:01 PM CDT
--- OUTSIDE RECORDS SUMMARY | 2025-02-24 09:30 | XMS_ITS ---
Author Organization [facility] Address [address] [place] [address] Care Team Providers Care Balloon Artist Name Role Phone Reyes Landers II Unavailable [phone] Oliva, Ciaran Unavailable [phone] REASON FOR VISIT pump refill Encounters Encounter Location Date Provider Diagnosis [facility] [address] [place] [address] 02/24/2025 Reyes Landers Plan Of Treatment Next Appt Details Provider Name:Reyes faustin, 06/18/2025 01:00:00 PM, [address], [address], [place], [address], Provider Name:Reyes faustin, 06/18/2025 03:30:00 PM, [address], [address], [place], [address], Progress Notes * Jeffery RONQUILLO ADOB:[birth year] (54 yo M)Acc No.[id number]:02/24/2025 Patient: Larry ETTA Jeffery Gaytan Provider: Mike [...] * Provider: Mike Landers II, M.D. Date: 02/24/2025 Generated for Zohra poole/Angelica/Kristopher on: 0 02/26/2025 12:01 PM CDT
--- OUTSIDE RECORDS SUMMARY | 2025-02-24 09:30 | XMS_ITS ---
Author Organization [facility] ex Address [address] [place] [address] Care Team Providers Care Hand Embroiderer Name Role Phone Reyes Landers II Unavailable Oliva, Ciaran Unavailable [phone] REASON FOR VISIT pump refill Encounters Encounter Location Date Provider Diagnosis [facility] [address] [place] [address] 02/24/2025 Reyes Landers Plan Of Treatment Next Appt Details Provider Name:Reyes faustin, 06/18/2025 01:00:00 PM, [address], [address], [place], [address], Provider Name:Reyes faustin, 06/18/2025 03:30:00 PM, [address], [address], [place], [address], Progress Notes * Jeffery RONQUILLO ADOB:[birth year] (54 yo M)Acc No.[id number]:02/24/2025 Patient: Larry ETTA Jeffery Gaytan Provider: Mike [...] 0 02/24/2025 Generated for Zohra poole/Angelica/Kristopher on: 0 02/25/2025 08:39 AM CDT
[2025-02-25] VITALS (21 sets, daily range): BP systolic 152–213; BP diastolic 82–121; PULSE 97–121; RESP 10–18; TEMP 36.1–37.1; O2SAT 96–100; BMI 28.4; BMI 28.0
--- NOTE | 2025-02-25 09:38 | PC.NURSE ---
PAGED DR KING FOR DR TAYLOR
--- NOTE | 2025-02-25 09:40 | XR_ITS ---
FINAL REPORT CLINICAL HISTORY: R great toe infection, PT STATED HE GOT A SPINTER ON THE DORSAL PART OF THE GREAT TOE ON SATURDAY AND REDNESS AND SWELLING HAS GOTTEN WORSE , PT IS A TYPE 2 DIABETIC FINDINGS: RIGHT FOOT Three views were obtained. There is an age-indeterminate fracture at the head of the first proximal phalanx. 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 No bone destruction is identified. There is soft tissue edema of the medial forefoot. No foreign body is identified. IMPRESSION: Age-indeterminate fracture at the head of the first proximal phalanx. No evidence of osteomyelitis. Soft tissue edema, could represent cellulitis. Reviewed, Interpreted and Dictated by Zuleika Hernandez MD Transcribed by Bethany Dumont Authenticated and [facility]
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
--- NOTE | 2025-02-25 09:43 | PC.NURSE ---
FSBS 340
--- OUTSIDE RECORDS SUMMARY | 2025-02-25 09:43 | XMS_ITS | Clinical Summary ---
Author Organization [facility] Address [address] [place] [address] Care Team Providers Care Printed Circuit Boards Stripper Etcher Name Role Phone Provider, No Known Primary Care Provider Unavail able Medications * This document contains information received from the source organization and may not represent a complete record from that organization. No known medications Active Problems No known active problems Social History Tobacco Use Types Packs/Day Years Used Date Smoking Tobacco: Never Assessed Abuse Screen Answer Date Recorded Unsafe at Home or Work/School Not on file Feels Threatened by Someone? Not on file 05/2023 Does Anyone Keep You from Co ntacting Others or Doint Things Outside the Home? Not on file 03/14/2023 Physical Sign of Abuse Present Not on file 1 Housing Stability Answer Date Recorded Current Living Arrangements Not on file 03/03 Potentially Unsafe Housing Conditions Not on young e 03/14/2023 Family and Community Support Answer Jesús e Recorded Help with Day-to-Day Activities Not on file 03/14/2023 Lonely or Isolated Not on file 03/14/2023 Employment Answer Date Recorded Do you want help finding or keeping work or a raiza b? Not on file 03/14/2023 Disabilities Answer Date Recorded Concentrating, Remembering, or Making Decisions Difficulty Not on file 03/14/2023 Doing Errands Independently Difficulty Not on fi le 03/14/2023 Education Answer Date Recorded Help with school or training? Not on file Preferred Language Not on file 03/14/2023 Sex and Gender Information Value Date Recorded Sex Assigned at Not on file Legal Sex Male 10:47 AM EST Gender Identity Not on file Sexual Orientation Not on file Plan of Treatment Health Maintenance Due Date Last Done Comments TDAP/TD VACCINES (1 - Tdap) 1991 COLOGUARD 2017 COLON CANCER SCREENING 5 YEAR SIGMOIDOSCOPY 2017 COLONOSCOPY [address] CANCER SCREENING 2017 [address] COLONOGRAPHY 2017 FECAL OCCULT BLOOD TEST 2017 FIT Testing (1 year) 2017 ANNUAL PHYSICAL 09/08/2018 HEPATITIS C SCREENING 09/08/2018 Pneumococcal Vaccine 50+ (1 of 1 - PCV) 2022 ZOSTER VACCINE (1 of 2) 2022 INFLUENZA VACCINE 01/01/2025 Insurance [employer] Care Teams Printed Circuit Boards Stripper Etcher Relationship Specialty Start Date End Date Provider, [place] [address] PCP - General 07/23/18
--- OUTSIDE RECORDS SUMMARY | 2025-02-25 09:43 | XMS_ITS | Clinical Summary ---
Author Organization Healthcare Address [address] [place] [address] Care Team Providers Care Building Certifier Name Role Phone Vish Barakat MD Primary Care Provider + [phone] Family History Medical History Relation Name Comments Conversions - Other Father Back pro blem Hypertension Father Heart attack Mother Conversions - Other Other 1 Back pro blem Hypertension Other 2 Heart attack Other 3 Relation Name Status Comments Father Mother Other 1 Other 2 Other 3 Social History Tobacco Use Types Packs/Day Years Used Date Smoking Tobacco: Former Sex and Gender Information Value Date Recorded Sex Assigned at Not on file Legal Sex Male 6:29 PM EDT Gender Identity Not on file Sexual Orientation Not on file Last Filed Vital Signs Vital Sign Reading Time Taken Comments Blood Pressure 126/81 12/17/2018 10:51 AM EDT Pulse 86 12/17/2018 10:51 AM EDT Temperature 36.9 C (98.5 F) 11/20/2017 9:56 AM EDT Respiratory Rate 20 12/17/2018 10:51 AM EDT Oxygen Saturation - - Inhaled Oxygen Concentration - - Weight 123 kg (271 lb 4.1 oz) 12/17/2018 10:51 A M EDT Height 195.6 cm (6' 5 ) 12/17/2018 10:51 AM EDT Body Mass Index 32.17 12/17/2018 10:51 AM EDT Plan of Treatment Not on file Care Teams Building Certifier Relationship Specialty Start Date End Date Vish Barakat MD [address] [place] [address] PCP - General 10/14/20
--- OUTSIDE RECORDS SUMMARY | 2025-02-25 09:43 | XMS_ITS | Patient Health Record ---
Author Organization [facility] Address [address] [place] [address] Care Team Providers Care Fingerprint Expert Name Role Phone Reyes Landers II Unavailable Oliva, Ciaran Unavailable [phone] Allergies No Known Allergies Reason For Referral No Information Medications Medication SIG (Take, Route, Fr equency, Duration) Notes Start Date End Date Status citalopram 20 mg 1 tab(s) orally once a day; Duration: 30 day(s) 10/12/2020 Active lisinopril 5 mg ; Duration: 90 Active metFORMIN 1000 mg 1 tab(s) orally 2 ti mes a day; Duration: 30 day(s) 10/12/2020 Active pantoprazole 40 mg 1 tab(s) orally once a day; Duration: 30 day(s) Active citalopram 40 mg 1 tab(s) orally once a day; Duration: 30 day(s) 10/12/2020 Active atorvastatin 80 mg 1 tab(s) orally once a day; Duration: 30 day(s) 10/12/2020 Active Social History Tobacco Use: Social History Observation Description Date Details (start date - stop date) Former Smoker NA - NA Smoking-PQRS Question Answer Notes Are you a: former smoker Vital Signs Heart Rate 65 /min 03/25/2024 Blood pressure diastolic 85 mm Hg 03/25/2024 Height 72 in 03/25/2024 Blood pressure systolic 140 mm Hg 03/25/2024 Weight 250 lbs 03/25/2024 BMI 33.90 kg/m2 03/25/2024 Encounters Encounter Location Date Provider Diagnosis [facility] [address] [place] [address] 03/25/2024 Reyes Landers [facility] [address] [place] [address] 07/17/2024 Reyes Landers [facility] [address] [place] [address] 11/06/2024 Reyes Landers [facility] [address] [place] [address] 02/24/2025 Reyes Landers [facility] [address] [place] [address] 03/25/2024 Reyes Landers Other usp (current) drug therapy Z79.899 [facility] [address] [facility] [address] [place] [address] 11/06/2024 Reyes Landers Other resource conservation specialist (current) drug therapy Z79.899 Assessments Encounter Date Diagnosis (ICD Code) Assessment Notes Treatment Notes Treatment Clinical Notes Section Notes 11/06/2024 Other resource conservation specialist (current) drug therapy (ICD-10 - Z79.899) 03/25/2024 1. Continue ITP therapy 2. come back on Refill date Mr. Ronquillo returns today for office visit. He had his pain pump refilled today. He has been stable on his current dose of medicine for quite some time now. 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 He has continued to lose some weight and is quite pleased with his activity level no changes were made in the infusion rate of 0.6 mg/day of morphine. 03/25/2024 Other resource conservation specialist (current) drug therapy (ICD-10 - Z79.899) 03/25/2024 1. Continue ITP therapy 2. come back on Refill date Mr. Ronquillo returns today for office visit. He had his pain pump refilled today. He has been stable on his current dose of medicine for quite some time now. 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 His weight is down to 230 pounds from a high of 320 pounds when the pump was implanted. We are no longer prescribing any supplemental medications and consequently I can follow him on a more remote basis with I doing the pain pump refills unless changes need to be made. Plan Of Treatment Pending Test Test Name Order Date Urine Test ANALYZER 03/25/2024 Urine Test ANALYZER 11/06/2024 Next Appt Details Provider Name:Reyes Carr roxie, 06/18/2025 01:00:00 PM, [address], [place], [address], Provider Name:Reyes Carr roxie, 06/18/2025 03:30:00 PM, [address], [address], [place], [address], Insurance Providers Payer Name Payer Address Payer Phone Subscriber Number Group Number Insured Name Patient Relationship to Insured Coverage Start Date Coverage End Date R [id number] [address] [address] [place] [address] [id number] [phone] [id number] Jeffery Ronquillo Self - patient is the insured 4 Medical (General) History Medical History History ICD Code High cholesterol Diabetes Depression Anxiety Surgical History Surgery Date(Month/Year) ITP placement/ Dr. Oconnor surgery on LT arm/ [facility] 2016 surgery on pelvis/ [facility] 2016 Hospitalization History Reason Date(Month/Year) Stayed at after surgeries 2016
--- NOTE | 2025-02-25 09:47 | PC.NURSE ---
RT AWARE OF VBG
--- NOTE | 2025-02-25 09:48 | PC.NURSE ---
PT TRANSPORTED TO RADIOLOGY
[2025-02-25 09:52] LABS: Hematocrit 44.8 % (42.0-52.0); Hemoglobin 15.6 g/dL (14.1-18.0); Immature Granulocytes % 0.7 %; Mean Corpuscular HGB Conc 34.8 g/dL (31.8-35.4); Mean Corpuscular Hemoglobin 29.9 pg (27.0-31.2); Mean Corpuscular Volume 86.0 fl (80-94); Nucleated Red Blood Cells % 0 %; Platelet Count 250 K/mm3 (142-424); Red Blood Count 5.21 M/mm3 (4.60-6.20); Red Cell Distribution Width-SD 37.7 fL; White Blood Count 16.2 K/mm3 (4.8-10.8)
[2025-02-25 09:53] LABS: VBG HCO3 23.9 mmol/L (23-30); VBG PCO2 43.1 mmol/L (35-51); VBG PH 7.36 mmol/L (7.31-7.41); VBG PO2 37.5 mmol/L (28-40)
[2025-02-25] MEDS: VANCOMYCIN CONSULT REQUEST 1 EACH NOTAPPLIC (09:55)
[2025-02-25 09:56] LABS: Lactate Venous 2.5 mmol/L (0.4-2.0)
[2025-02-25 10:04] LABS: Alanine Aminotransferase 30 U/L (12-78); Albumin Level 4.5 g/dl (3.5-5.0); Albumin/Globulin Ratio 1.1 (1.1-1.8); Alkaline Phosphatase 147 U/L (38-126); Anion Gap 17.7 mEq/L (5-15); Aspartate Amino Transferase 33 U/L (17-59); Bilirubin,Total 1.4 mg/dl (0.2-1.3); Blood Urea Nitrogen 11 mg/dl (9-20); Calcium 9.5 mg/dl (8.4-10.2); Carbon Dioxide 23 mmol/L (22.0-30.0); Chloride 93 mmol/L (98-107); Creatinine Clearance Estimated 190 mL/min (50-200); Creatinine,Serum 0.70 mg/dl (0.66-1.25); Estimated Glomerular Filt Rate 118 ml/min (>60); GFR (African American) 143 ML/MIN (>60); Globulin 4.0 g/dL (1.3-3.2); Glucose 346 mg/dl (74-100); Potassium 3.7 mmoL/L (3.5-5.1); Sodium 130 mmol/L (136-145); Total Protein,Serum 8.5 g/dl (6.3-8.2)
[2025-02-25] MEDS: LACTATED RINGERS 1340 ML IV (10:04)
[2025-02-25] MEDS: TET/DIPHTH/PERT-ADULT 0.5ML SYRINGE 0.5 ML IM (10:04)
[2025-02-25 10:09] LABS: C-Reactive Protein 102.5 mg/L (0-4)
[2025-02-25] MEDS: CLINDAMYCIN PHOSPHATE/D5W 900 MG/50 ML PIGGYBACK 100 MG IV (10:24)
--- NOTE | 2025-02-25 10:24 | CT_ITS ---
FINAL REPORT TECHNIQUE: Thin section axial images were obtained of the right foot before and after the administration of IV contrast. This study was performed with techniques to keep radiation doses as low as reasonably achievable, (ALARA). Individualized dose reduction techniques using automated exposure control or adjustment of mA and/or kV according to the patient's size were employed. CLINICAL HISTORY: necrotizing wound great toe COMPARISON: None FINDINGS: There is no acute osseous abnormality. No evidence of bony destruction. There is chronic deformity of the head of the 1st proximal phalanx. Mild degenerative joint disease is particularly evident at the 1st MTP joint. There is soft tissue edema worst along the dorsal foot and medial forefoot extending into the soft tissues of the great toe. There is subcutaneous air along the lateral base of the great toe. No peripherally enhancing fluid collections identified. IMPRESSION: No acute osseous abnormality or evidence of osteomyelitis. Cellulitis with subcutaneous air of the great toe consistent with gangrene. No peripherally enhancing fluid collection identified. Reviewed, Interpreted and Dictated by Zuleika Hernandez MD Transcribed by Daria Ruvalcaba Authenticated and [facility]
[2025-02-25] MEDS: PIPERACILLIN/TAZO 4.5 GM in 0.9 % SODIUM CHLORIDE 100 ML IV (10:32)
--- NOTE | 2025-02-25 10:37 | PC.NURSE ---
LETY CARPENTER AT BEDSIDE
--- NOTE | 2025-02-25 10:48 | ECG_ITS ---
APPROVED REPORT Exam: Resting ECG HR:110 bpm ECG Measurements Heart Rate 110 AXES CA 153 P 56 QRSd 93 QRS 61 QT 332 T -18 QTc 397 Conclusion SINUS TACHYCARDIA NONSPECIFIC T-WAVE ABNORMALITY ABNORMAL ECG UNCONFIRMED REPORT Electronically signed by : ALLEN LIU, 02/26/2025 03:58:41
[2025-02-25] MEDS: VANCOMYCIN HCL 2,250 MG in 0.9 % SODIUM CHLORIDE 250 ML 125 MG IV (10:50)
--- NOTE | 2025-02-25 10:53 | PC.NURSE ---
PT TRANSPORTED TO CT VIA WHEELCHAIR
[2025-02-25] MEDS: IOPAMIDOL-370 (76%);100ML BOTTLE 89 ML IV (11:01)
--- NOTE | 2025-02-25 11:04 | PC.NURSE ---
PT RETURNED FROM CT
[2025-02-25 11:05] LABS: Hepatitis C Ab Qual. W/ RFX NEGATIVE (Negative)
[2025-02-25 11:16] LABS: Hemoglobin A1C > 14.0 % (4.0-6.0)
--- NOTE | 2025-02-25 11:55 | EXP.HP ---
[facility] Disclaimer: The information contained in this section may have been updated after the patient was seen, as this information can be updated by other users. Social History (Updated 02/25/25 @ 09:47 by Malgorzata Lan RN) Smoking Status: Never smoker second hand exposure: No alcohol intake: current substance use type: marijuana current occupational status: employed Travel in the last 8 weeks?: None household members: none housing: house current occupational exposures/hazards: No caffeine: No Have you lived/traveled outside US in past 30 days?: No Contact w/someone who lives/traveled outside US past 30 days?: No Exposure to someone with infectious disease in past 14 days?: No Do you have a fever (greater than 100.4 F or 38 C)?: No Have you tested positive for COVID-19?: No Exposed to someone with COVID-19 in past 14 days?: No Do you have a sore throat?: No Do you have a cough?: No Do you have any weakness?: No Do you have any diarrhea?: No Are you experiencing any unusual bleeding?: No Do you have any muscle aches/pain?: No Do you have any abdominal pain?: No Are you experiencing loss of taste or smell?: No Other Medical History Have you received the Flu Vaccine for this season: No Have you received the Pneumonia Vaccine: No Meds Home Medications and Allergies Home Medications ?Medication ?Instructions ?Recorded ?Confirmed ?Type morphine 5 mg/mL injection solution 0.25 mg IT DAILY Pain 11/11/18 07/19/20 History ashwagandha extract 120 mg capsule 120 mg PO DAILY 02/25/25 02/25/25 History magnesium oxide 150 mg-herbal 1 tab PO DAILY 02/25/25 02/25/25 History drugs tablet (Beet Root-Magnesium) multivitamin 1 tab PO DAILY 02/25/25 02/25/25 History vitamin B complex 1 tab PO DAILY 02/25/25 02/25/25 History New Prescriptions to Start Prescriptions: Allergies Allergy/AdvReac Type Severity Reaction Status Date / Time No Known Allergies Allergy Verified 02/25/25 09:47 Exam Data for Last 24 hours Vital signs and Labs for Last 24 Hours: Temp Pulse Resp BP Pulse Ox O2 Del Method 98.4 F 110 H 18 213/104 H 100 Room Air 02/25/25 09:39 02/25/25 11:09 02/25/25 11:09 02/25/25 11:09 02/25/25 11:09 02/25/25 11:09 Laboratory Results - last 24 hr 02/25/25 09:42: WBC 16.2 H, RBC 5.21, Hgb 15.6, Hct 44.8, MCV 86.0, MCH 29.9, MCHC 34.8, RDW 11.9, Plt Count 250, MPV 9.3, Neut % (Auto) 76.9, Lymph % (Auto) 13.7, [place] % (Auto) 7.5, Eos % (Auto) 0.6, Baso % (Auto) 0.6, Neut # (Auto) 12.5 H, Lymph # (Auto) 2.2, [place] # (Auto) 1.2 H, Eos # (Auto) 0.1, Baso # (Auto) 0.1, VBG pH 7.36, VBG pCO2 43.1, VBG pO2 37.5, VBG HCO3 23.9, VBG Total CO2 25.2, VBG O2 Saturation 75.5 H, VBG Base Excess -1.5, VBG Lactic Acid 2.5 H, Sodium 130 L, Potassium 3.7, Chloride 93 L, Carbon Dioxide 23, Anion Gap 17.7 H, BUN 11, Creatinine 0.70, Estimated Creat Clear 190, Estimated GFR 118, Est GFR ( Amer) 143, Glucose 346 H, Hemoglobin A1c > 14.0 H, Calcium 9.5, Total Bilirubin 1.4 H, AST 33, ALT 30, Alkaline Phosphatase 147 H, C-Reactive Protein 102.5 H, Total Protein 8.5 H, Albumin 4.5, Globulin 4.0 H, Albumin/Globulin Ratio 1.1, HCV Ab PRECIOUS w/Rflx PCR Qn Negative, HIV Ag/Ab Combo Qual Negative I & O for Last 24 hours: Intake & Output 02/22/25 02/23/25 02/24/25 02/25/25 23:59 23:59 23:59 23:59 Intake Total 150 / 150 Balance 150 / 150 Weight 108.862 kg
--- NOTE | 2025-02-25 11:55 | PC.NURSE ---
HOUSE AWARE OF ADMISSION
--- NOTE | 2025-02-25 12:16 | PC.NURSE ---
PROVIDED PT WITH FAMILY LIST OF PEOPLE ACCEPTING PTS AT THIS TIME
--- NOTE | 2025-02-25 12:17 | PC.NURSE ---
[facility] ANESTHESIOLOGIST AT BEDSIDE
--- NOTE | 2025-02-25 12:19 | PC.NURSE ---
ATTEMPTED TO CALL REPORT NO ANSWER. WILL TRY AGAIN SHORTLY
--- NOTE | 2025-02-25 12:23 | PC.NURSE ---
DR KING AT BEDSIDE
--- NOTE | 2025-02-25 12:28 | PC.NURSE ---
REPORT CALLED TO REED KIM
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
--- NOTE | 2025-02-25 13:33 | P.HP_ITS ---
<Statement entered by Max Valle MD - 02/25/25 16:19> Patient meets severe sepsis criteria with tachycardia, leukocytosis, lactic acidosis. Agree with rest of the plan of care as outlined by the COMPUTER TAPE LIBRARIAN as below. History of Present Illness *Admission Date: 02/25/25 *Reason for visit:: Foot infection *History of present illness: Mr. Ronquillo is a 54-year-old male who presented to the ER due to an infection in his right great toe. He has a primary medical history of DDD with pain pump placement, diabetes mellitus type 2 (A1c >14), and hypertension. He states that he had a splinter in his right great toe and dorsal forefoot causing him pain on Saturday. He was able to pull the splinter out and clean the site but it continued to look infected and was not getting better, so he presented today to the emergency department for further evaluation. He denies fever, chills, chest pain, abdominal pain, nausea, vomiting, diarrhea. He does complain of deep pain into his foot that is intermittent, worse with ambulation or movement. [facility] Disclaimer: The information contained in this section may have been updated after the patient was seen, as this information can be updated by other users. Medical History (Updated 02/25/25 @ 14:53 by Anuradha Hinkle APRN) Implantable intrathecal infusion pump present Diabetes mellitus, type 2 Anxiety HLD (hyperlipidemia) Hypertension Surgical History (Updated 02/25/25 @ 13:27 by Vikki Govea RN) History of hip surgery History of surgery on arm Family History (Updated 02/25/25 @ 13:08 by Vikki Govea, JULIO) Other Coronary artery disease Heart attack Hypertension Social History (Updated 02/25/25 @ 13:10 by Vikki Govea RN) Smoking Status: Never smoker second hand exposure: No alcohol intake: current substance use type: marijuana current occupational status: employed Travel in the last 8 weeks?: None household members: none housing: house current occupational exposures/hazards: No caffeine: No Have you lived/traveled outside US in past 30 days?: No Contact w/someone who lives/traveled outside US past 30 days?: No Exposure to someone with infectious disease in past 14 days?: No Do you have a fever (greater than 100.4 F or 38 C)?: No Have you tested positive for COVID-19?: No Exposed to someone with COVID-19 in past 14 days?: No Do you have a sore throat?: No Do you have a cough?: No Do you have any weakness?: No Are you experiencing any nausea/vomitting?: No Do you have any diarrhea?: No Are you experiencing any unusual bleeding?: No Do you have any muscle aches/pain?: No Do you have any abdominal pain?: No Are you experiencing loss of taste or smell?: No Other Medical History Have you received the Flu Vaccine for this season: No Have you received the Pneumonia Vaccine: No Review of Systems Constitutional Constitutional: Denies chills and Denies fever(s) *Cardiovascular Cardiovascular: Denies chest pain *Gastrointestinal Gastrointestinal: Denies abdominal pain, Denies loose stools and Denies nausea Integumentary/Breasts Skin/Breast: Reports erythema (Right great toe and dorsum foot) and Reports wounds (Right great toe) Meds Home Medications and Allergies Home Medications ?Medication ?Instructions ?Recorded ?Confirmed ?Type gwendha extract 120 mg capsule 120 mg PO DAILY 02/25/25 History magnesium oxide 150 mg-herbal 1 tab PO DAILY 02/25/25 02/25/25 History drugs tablet (Beet Root-Magnesium) multivitamin 1 tab PO DAILY 02/25/2502/02 History vitamin B complex 1 tab PO DAILY 02/25/2502/02 History New Prescriptions to Start Prescriptions: Allergies Allergy/AdvReac Type Severity Reaction Status Date / Time No Known Allergies Allergy Verified 02/25/25 09:47 Exam Data for Last 24 hours Vital signs and Labs for Last 24 Hours: Temp Pulse Resp BP Pulse Ox O2 Del Method 98.8 F 103 H 17 167/93 H 100 Room Air 02/25/25 13:05 02/25/25 13:05 02/25/25 13:05 02/25/25 13:05 02/25/25 13:05 02/25/25 13:05 Laboratory Results - last 24 hr 02/25/25 09:42: WBC 16.2 H, RBC 5.21, Hgb 15.6, Hct 44.8, MCV 86.0, MCH 29.9, MCHC 34.8, RDW 11.9, Plt Count 250, MPV 9.3, Neut % (Auto) 76.9, Lymph % (Auto) 13.7, [place] % (Auto) 7.5, Eos % (Auto) 0.6, Baso % (Auto) 0.6, Neut # (Auto) 12.5 H, Lymph # (Auto) 2.2, [place] # (Auto) 1.2 H, Eos # (Auto) 0.1, Baso # (Auto) 0.1, VBG pH 7.36, VBG pCO2 43.1, VBG pO2 37.5, VBG HCO3 23.9, VBG Total CO2 25.2, VBG O2 Saturation 75.5 H, VBG Base Excess -1.5, VBG Lactic Acid 2.5 H, Sodium 130 L, Potassium 3.7, Chloride 93 L, Carbon Dioxide 23, Anion Gap 17.7 H, BUN 11, Creatinine 0.70, Estimated Creat Clear 190, Estimated GFR 118, Est GFR ( Amer) 143, Glucose 346 H, Hemoglobin A1c > 14.0 H, Calcium 9.5, Total Bilirubin 1.4 H, AST 33, ALT 30, Alkaline Phosphatase 147 H, C-Reactive Protein 102.5 H, Total Protein 8.5 H, Albumin 4.5, Globulin 4.0 H, Albumin/Globulin Ratio 1.1, HCV Ab PRECIOUS w/Rflx PCR Qn Negative, HIV Ag/Ab Combo Qual Negative I & O for Last 24 hours: Intake & Output 02/22/25 02/23/25 02/24/25 02/25/25 23:59 23:59 23:59 23:59 Intake Total 2830 / 2830 Balance 2830 / 2830 Weight 107.076 kg Constitutional Constitutional: no acute distress, average body habitus and cooperative *Routine HEENT Exam Head: Present normocephalic Eye: Present EOMI ENT: Present mucous membranes moist *Routine Neck Exam Neck: Present supple and full ROM *Routine Respiratory Exam Respiratory: Present CTA bilaterally, normal respiratory effort, able to speak in complete sentences and symmetric chest movement; Absent rhonchi, stridor or wheezes *Routine Cardiovascular Exam Cardiovascular: Present RRR; Absent murmur *Routine Abdominal Exam Abdominal: Present soft and normoactive bowel sounds; Absent tenderness or distended *Routine Rectal Exam Rectal:: deferred *Routine Genitalia Exam Genitalia:: deferred *Routine Extremities Exam Extremities: Present edema, tenderness and joint swelling Comments: Necrotizing soft tissue infection of right great toe *Routine Skin Exam Skin: Present intact, erythema (Right great toe and dorsum foot) and gangrene *Routine Neurological Exam Neurological: Present alert, moving all extremities and normal speech Routine Psychiatric Exam Psychiatric: Present normal affect Assessment and Plan *Assessment and plan (1) Sepsis: Status: Acute Category: Medical Code(s): A41.9 - Sepsis, unspecified organism (2) Gangrenous: Status: Acute Category: Medical Code(s): I96 - Gangrene, not elsewhere classified (3) Cellulitis: Problem Comment: Right hallux DFU from stepping on splinter 02/21/25, gangrene ulcer, cellulitis started Saturday02/22/25 Status: Acute Qualifiers: Laterality: right Site of cellulitis of extremity: lower extremity Category: Medical Code(s): L03.90 - Cellulitis, unspecified (4) Edema of right foot: Status: Acute Category: Medical Code(s): R60.0 - Localized edema (5) Elevated hemoglobin A1c: Status: Acute Category: Medical Code(s): R73.09 - Other abnormal glucose (6) Hypertension: Status: Acute Category: Medical Code(s): I10 - Essential (primary) hypertension (7) Degenerative disc disease: Status: Chronic Qualifiers: Spinal region: lumbar Qualified Code(s): M51.36 - Other intervertebral disc degeneration, lumbar region Category: Medical Plan Mr. Ronquillo is a 54-year-old male who presented to the ER due to an infection in his right great toe. He has a primary medical history of DDD with pain pump placement, diabetes mellitus type 2 (A1c >14), and hypertension. He states that he had a splinter in his right great toe and dorsal forefoot causing him pain on Saturday. He was able to pull the splinter out and clean the site but it continued to look infected and was not getting better, so he presented today to the emergency department for further evaluation. He denies fever, chills, chest pain, abdominal pain, nausea, vomiting, diarrhea. He does complain of deep pain into his foot that is intermittent, worse with ambulation or movement. The ED provider consulted hospital medicine for admission, I agreed to admit the patient for further care. Podiatry also consulted for surgical intervention. Plan of care as follows: #Necrotizing soft tissue infection, right great toe #Gangrenous of right great toe #Edema of right foot/cellulitis #Sepsis ? Assessment reveals necrotic, gangrenous infection of right great toe and erythema and cellulitis of right dorsum foot. CT imaging shows cellulitis with subcutaneous air of the great toe consistent with gangrene, no peripheral enhancing fluid collection identified. No evidence of abnormality or osteomyelitis. Podiatry consulted and plans for surgical intervention later this afternoon. Patient agreeable to surgery. ? Patient meeting sepsis criteria, tachycardic, elevated WBC 16.2, lactate 2.5. Blood cultures pending. Patient received full sepsis bolus in the ED. He was started empirically on clindamycin, vancomycin, Zosyn. Will continue Zosyn every 6 hours and vancomycin dosed by pharmacy. ? Patient complains of mild to moderate pain worse with movement. Acetaminophen, [place], morphine IV ordered for mild to severe pain. Monitoring for toxicity. #Elevated A1c #Diabetes mellitus type 2 ? Patient states he has a known history of diabetes but does not take any medication at this time. He has previously taken metformin. Patient's A1c on admission <14%. Patient started on sliding scale insulin and Lantus 15 units nightly during admission. ACHS fingersticks ordered. #Hypertension ? Patient initially hypertensive 200s/100s in the ED, discussed with patient starting medication for blood pressure postprocedure. He is agreeable. Will start lisinopril 10 mg daily. #DDD ? Patient has degenerative disc disease with pain pump placement. Patient states he had his pain pump filled yesterday. Full code VTE?Lovenox 40 mg subcu Diabetic diet Ambulate as tolerated
--- NOTE | 2025-02-25 13:34 | PC.WOUNDNOTE ---
right great toe
--- NOTE | 2025-02-25 13:37 | PC.WOUNDNOTE ---
right great toe, small amount of serosanguineous drainage
--- NOTE | 2025-02-25 13:39 | EXP.PHA.CONS ---
Pharmacy Consult Date: 02/25/25 Time: 13:41 Referring provider: CANDIDA VELARDE Reason for Consult:: VANCOMYCIN DOSING CONSULT Allergies Allergy/AdvReac Type Severity Reaction Status Date / Time No Known Allergies Allergy Verified 02/25/25 09:47 Home Medications ?Medication ?Instructions ?Recorded ?Confirmed ?Type gracielaa extract 120 mg capsule 120 mg PO DAILY 02/25/25 02/25/25 History magnesium oxide 150 mg-herbal 1 tab PO DAILY 02/25/25 02/25/25 History drugs tablet (Beet Root-Magnesium) multivitamin 1 tab PO DAILY 02/25/25 02/25/25 History vitamin B complex 1 tab PO DAILY 02/25/25 02/25/25 History New Prescriptions to Start Prescriptions: Height: 1.96 m Weight: 107.076 kg Laboratory Results:: Laboratory Results - last 24 hr 02/25/25 09:42: WBC 16.2 H, RBC 5.21, Hgb 15.6, Hct 44.8, MCV 86.0, MCH 29.9, MCHC 34.8, RDW 11.9, Plt Count 250, MPV 9.3, Neut % (Auto) 76.9, Lymph % (Auto) 13.7, Nye % (Auto) 7.5, Eos % (Auto) 0.6, Baso % (Auto) 0.6, Neut # (Auto) 12.5 H, Lymph # (Auto) 2.2, Nye # (Auto) 1.2 H, Eos # (Auto) 0.1, Baso # (Auto) 0.1, VBG pH 7.36, VBG pCO2 43.1, VBG pO2 37.5, VBG HCO3 23.9, VBG Total CO2 25.2, VBG O2 Saturation 75.5 H, VBG Base Excess -1.5, VBG Lactic Acid 2.5 H, Sodium 130 L, Potassium 3.7, Chloride 93 L, Carbon Dioxide 23, Anion Gap 17.7 H, BUN 11, Creatinine 0.70, Estimated Creat Clear 190, Estimated GFR 118, Est GFR ( Amer) 143, Glucose 346 H, Hemoglobin A1c > 14.0 H, Calcium 9.5, Total Bilirubin 1.4 H, AST 33, ALT 30, Alkaline Phosphatase 147 H, C-Reactive Protein 102.5 H, Total Protein 8.5 H, Albumin 4.5, Globulin 4.0 H, Albumin/Globulin Ratio 1.1, HCV Ab PRECIOUS w/Rflx PCR Qn Negative, HIV Ag/Ab Combo Qual Negative Medical History: Medical History (Updated 02/25/25 @ 13:27 by Vikki Govea RN) Implantable intrathecal infusion pump present Diabetes mellitus, type 2 Anxiety HLD (hyperlipidemia) Hypertension Assessment and Plan Assessment and plan all Dx Assessment and Plan for all problems:: Pharmacokinetic dosing service Objective: Age: 54 yo Serum creatinine: 0.7 mg/dL Height: 76.8 Inches Weight (kg): 107.076 Diagnosis: DIABETIC FOOT INFECTION, NECROTIZING SOFT TISSUE INFECTION Assessment: IBW (kg): 88.64 Dosing wt(kg): 107.076 Estimated Creatinine clearance (ml/min): 130 Clearance limited to 130 ml/min to reduce risk of overdosing. CRCL method: Cockcroft and Gault using ibw(default). Drug selected: Vancomycin Loading dose (mg): 2250 MG Vd (liters): 75.0 (factor used: 0.7 L/kg) Janes (hr-1): 0.112 Half life (hrs): 6.19 CLvanco=?? 8.400 L/hr Recommended dose: 2000 mg Interval: 12 hrs Infusion time (hrs): 2.0 Predicted peak (mcg/mL): 32.3 Predicted trough (mcg/mL): 10.54 Total body weight is being used for vancomycin dosing. Recommendations: Give Vancomycin 2000 mg q 12 hrs with an expected Cpeak of 32.3 mcg/ml and an expected Ctrough of 10.54 mcg/ml TO START 02/25/25 AT 23:00, PATIENT RECEIVED ONE TIME LOADING DOSE OF VANCOMYCIN 2250 MG IN THE ED 02/25/25 AT 10:50. AUC 0-24 /ROSY Data: ROSY 0.5 mcg/mL:?? AUC/ROSY:? 952.4 ROSY 1.0 mcg/mL:?? AUC/ROSY:? 476.2 --------- ROSY 1.5 mcg/mL:?? AUC/ROSY:? 317.5 ROSY 2.0 mcg/mL:?? AUC/ROSY:? 238.1 Thank you for the consult
--- NOTE | 2025-02-25 13:53 | P.PNANES_ITS ---
[facility] Disclaimer: The information contained in this section may have been updated after the patient was seen, as this information can be updated by other users. Medical History (Updated 02/25/25 @ 13:50 by Klarissa Vidal APRN) Implantable intrathecal infusion pump present Diabetes mellitus, type 2 Anxiety HLD (hyperlipidemia) Hypertension Surgical History (Updated 02/25/25 @ 13:27 by Vikki Govea, RN) History of hip surgery History of surgery on arm Family History (Updated 02/25/25 @ 13:08 by Vikki Govea, RN) Other Coronary artery disease Heart attack Hypertension Social History (Updated 02/25/25 @ 13:10 by Vikki Govea RN) Smoking Status: Never smoker second hand exposure: No alcohol intake: current substance use type: marijuana current occupational status: employed Travel in the last 8 weeks?: None household members: none housing: house current occupational exposures/hazards: No caffeine: No Have you lived/traveled outside [place] in past 30 days?: No Contact w/someone who lives/traveled outside US past 30 days?: No Exposure to someone with infectious disease in past 14 days?: No Do you have a fever (greater than 100.4 F or 38 C)?: No Have you tested positive for COVID-19?: No Exposed to someone with COVID-19 in past 14 days?: No Do you have a sore throat?: No Do you have a cough?: No Do you have any weakness?: No Are you experiencing any nausea/vomitting?: No Do you have any diarrhea?: No Are you experiencing any unusual bleeding?: No Do you have any muscle aches/pain?: No Do you have any abdominal pain?: No Are you experiencing loss of taste or smell?: No [facility] Anesthesia Checklist Patient Identification Patient Identification: Arm Band Structural Data Admitted From: Emergency Dept Planned Operative Procedure/s: I&D Right Foot Consent for Planned Operative Procedure(s) Verified: Yes Verified Documents: Surgical Consent and History and Physical NPO Status Verified Time NPO: 08:00 (light breakfast) Additional verifications Anesthesia Reactions: No Hx Blood Transfusions: No Blood Transfusion Reaction: No Airway Assessment Mallampati Score:: Class II C-Spine Mobility Assessed: Yes TMJ Mobility Assessed: Yes Dentition: Good Dentition Neurological Assessment Level of Consciousness: Awake, Alert and Appropriate Anesthesia Plan Anesthesia Risk discussed: Yes Anesthesia Plan: Verified ASA Class: II Anesthesia Type: General
[2025-02-25] MEDS: humaLOG 100 UNITS/ML 10ML VIAL (SSI) 10 UNIT SUBCUT (13:54)
[2025-02-25 13:56] LABS: Reflex Lactic Add Lactic Reflex
[2025-02-25 14:54] LABS: POC Glucose,Bedside 274 gm/dL (70-110)
--- NOTE | 2025-02-25 14:54 | P.OP_ITS ---
Date of procedure: 02/25/25 Pre-op Diagnosis:: Right foot cellulitis Gas gangrene Diabetic foot ulcer History of puncture wound Post-op Diagnosis:: Same Procedure performed:: Right foot incision and drainage Right foot wide excisional debridement Right hallux amputation Surgeon:: Carina Doty DPM PRODUCTION DIRECTOR:: Ciaran Hogue Anesthesia: GETA Estimated blood loss (mL): 20 Clinical Note:: Pre-op indications: Podiatry MECHANICAL ASSEMBLY TECHNICIAN and myself saw the patient in the ER. He presents with right foot cellulitis with obvious symptoms of sepsis. Labs and vitals consistent with sepsis. X-ray of the and CT of the right foot show gas gangrene. We discussed conservative versus surgical treatment options. Perioperative/conservative treatment options include local wound care, oral and IV antibiotics, change in shoe wear, taping/padding, and off-loading. Discussed that patient would benefit from a wider and deeper shoe wear to accommodate the deformity-will discuss diabetic shoes outpatient in podiatry clinic. We discussed surgical intervention for right foot incision and drainage, debridement of nonviable soft tissue and bone with possible hallux amputation. Patient understands that there is a chance that the toes can migrate to fill the gap or the foot may change shape after surgery. Patient also understands that they could have wound healing complications including delayed healing and infection. We discussed that if the wound does not heal, it is possible that they may need a more proximal amputation and could result in further loss of digits, loss of partial foot or loss of leg. We discussed the risks and benefits in great detail. Other surgical risks include: prolonged/permanent pain and swelling, incomplete removal of infection/recurrence of infection, further infection requiring oral or IV antibiotics, delay in healing of soft tissue or bone, nerve or blood vessel damage, CRPS/RSD, DVT/PE, anesthesia complications, including . Discussed risks of uncontrolled diabetes Ha1c >14% including delayed healing and peripheral neuropathy. All questions answered to patient/girlfriend Delaney's satisfaction. Patient verbalized understanding agreement agreement with treatment plan. Verbal and written consent obtained. ER physician/anesthesia clearance granted. Operative findings:: Right foot had 1+ pitting edema and erythema extending to the dorsal midfoot. There is warmth and clinical signs consistent with cellulitis. Right hallux had a medial plantar preulcerative diabetic callus noted. Right hallux had a puncture wound on the plantar medial aspect with yellow purulent dishwater type drainage, wound culture taken. The toe had skin sloughing, black and blue necrotic changes consistent with gas gangrene. The distal toe was removed. There was yellow milky purulent drainage in the hallux IP joint. Cortical changes noted to the proximal phalanx head with drainage from the bone. Decision made to proceed with hallux amputation. No sinus tracking proximally toward the first metatarsal or onto the foot. Infection appeared localized to the great toe. The first metatarsal did have some changes to the first metatarsal head but they did not appear infectious in nature. They appear to be arthritic changes. There was a metatarsal osteochondral defect measuring 1.1 x 0.9 x 0.1 cm located in the central lateral first metatarsal head. Overall prognosis fair-poor. As the infection appeared to be localized to the great toe where he had the splinter puncture wound, patient will need continued IV antibiotics then transition to oral antibiotics. Will monitor wound cultures and biopsies and change anti biotics as needed. Patient needs aggressive blood sugar control or chances of wound healing, wound dehiscence, recurrent infection likely. Operative note:: On this date and time patient was deemed an appropriate surgical candidate. With informed consent signed, the patient was taken to the operating theater. The patient was positioned supine. General anesthesia was induced. No tourniquet used. The right lower extremity was prepped and drapped in normal sterile fashion. IV Vanco, Zosyn, Clinda given in ER. Right foot I&D (incision and drainage): Cellulitis noted around the great toe extending from the puncture wound opening extending onto the midfoot. 15 blade was used to make a linear incision on the plantar aspect of the distal phalanx full-thickness through skin, subcutaneous tissue, deep tissue down to level of the bone. Immediately purulent drainage was expressed and wound culture was taken. The distal phalanx bone appeared to be infected and was disarticulated at the HIPJ. It was cut and a piece sent for bone culture and the other part sent for bone biopsy for pathology. Right foot wide excisional debridement, ulcer excision: All nonviable soft tissue was sharply excisionally debrided full-thickness down to the deep fascia level with 15 blade, forceps and curette. There was nonviable grayish purpleish tissue consistent with gas producing organism to the distal toe. The puncture wound and medial plantar preulcerative diabetic callus sites were both excised full-thickness and sent for tissue and path specimens. Hemostat used to explore the area there was purulent drainage noted at the hallux proximal phalanx with cortical changes to the bone. Wound was flushed with Dentomycin irrigation and reexplored. Concern for bone changes and lack of skin to close over the proximal phalanx, decision made to proceed with hallux amputation. Right hallux amputation: Utilizing a 15 blade distal soft tissue was completely resected. A racquet ball incision was mapped out over the first metatarsal full-thickness down to the level of the bone. The proximal phalanx was disarticulated from the first metatarsal head. It was sent for bone culture. First met head had an osteochondral defect noted, see operative findings. Clean hemostat was utilized to explore the area. No purulence noted past the first metatarsal. Wound was flushed with gentamicin irrigation. The first metatarsal head no discoloration or obvious signs of osteomyelitis. Gentamicin irrigation again was used to flush the wound. The wound was reexplored and no further signs of infection noted. Bleeding controlled with electrocautery as there was some blood loss. Vancomycin powder inserted over the first metatarsal. Vicryl used to reapproximate deep tissue stitch over the metatarsal head. Nylon and Prolene was used to close skin in an interrupted simple suture fashion. The wounds were cleansed. Post-op right midfoot and ankle blocks given with 25cc 0.5% marcaine plain. Xeroform, betadine, dry gauze, Kerlix, Yuri was then applied to the foot. The patient was awoken from anesthesia and transferred to recovery with vital signs stable and neurovascular status intact. Patient appeared to tolerate procedure and anesthesia well without complication. Materials: 1g vancomycin powder, Prolene/nylon sutures Discharge/Plan: Obtain post op films, right foot, 3 views. Patient is to maintain dressing clean dry and intact. Nursing to do daily dressing changes starting 02/26/25: Xeroform to incision, Betadine soaked gauze x 2, dry gauze, Sarai/Kerlix, secure with Yuri. PT in am for gait training. (Hx left hip issues, concerned for balance). Needs short fracture boot. (Patient may have walker at home he can borrow from father). Ideally NWB to RLE in fracture boot with rolling knee scooter. Discussed okay to PWB to heel in fracture boot with walker for short distances. Continue IV antibiotics per Hospitalist team: for broad-spectrum coverage for MRSA and Pseudomonas. Given source of infection removed, he may not need PICC line with IV antibiotics but would benefit from 2 weeks of oral antibiotics after discharge. Labs in am. Patient would like to go home tomorrow. I explained that will depend on his labs, vitals and if stable from sepsis stand point. He has agreed to wait. Discussed plan of care with patient, his parents and STEPHAN Baltazar. Patient lives alone and would benefit from [facility] services. Home health care services: Needs twice weekly right foot dressing changes: Xeroform to incision, Betadine s oaked gauze x 2, dry gauze, Sarai/Kerlix, secure with Yuri. Will need weekly outpatient follow up with Podiatry upon discharge. Would benefit from DM shoes with custom orthotics, can discuss again outpatient. Condition: stable Disposition: floor Specimens:: Micro: Right foot wound culture Right hallux deep wound culture Right ulcer tissue culture Right hallux distal bone culture Right hallux proximal phalanx bone culture Path: Right ulcer tissue path Right hallux distal bone path Complications:: None
[2025-02-25] MEDS: GENTAMICIN 80 MG/2 ML VIAL ×2 (15:15→16:04)
[2025-02-25] MEDS: BUPIVACAINE 0.5% 30ML VIAL 150 MG (15:15)
[2025-02-25] MEDS: VANCOMYCIN 1000MG VIAL 1000 MG (16:05)
--- NOTE | 2025-02-25 16:28 | XR_ITS ---
PROCEDURE INFORMATION: Exam: XR Right Foot Exam date and time: 02/25/2025 4:27 PM Age: 54 years old Clinical indication: Prior surgery; Surgery date: Post-operative (0-2 days); Surgery type: Amputation; Additional info: Post op TECHNIQUE: Imaging protocol: Radiologic exam of the right foot. Views: 3 or more views. COMPARISON: CT FOOT RT WO/W CON 02/25/2025 11:00 AM FINDINGS: Bones/joints: Resection of the right great toe at the level of the 1st MTP joint. Soft tissues: Postsurgical changes in the soft tissues. IMPRESSION: Resection of the right great toe at the level of the 1st MTP joint.
--- NOTE | 2025-02-25 16:28 | EXP.ANES.I ---
[facility] Anesthesia Record Part I Anesthesia Record I Intake, IV Amount: 700 Hydration: Adequate Estimated blood loss (mL): 0 Urine output (mL): 0 Blood Products used (#): none Blood Pressure: 158/84 SaO2: 96 Pulse Rate: 104 Airway Patency: Patent Respiratory Rate: 14 Temperature: 97.0 F Patient is:: Awake and Stable Stable to PACU at:: 16:22
[2025-02-25] MEDS: humaLOG 100 UNITS/ML 10ML VIAL (SSI) SUBCUT ×2 (17:49→20:12)
[2025-02-25] MEDS: PIPERACILLIN/TAZO 3.375 GM in 0.9 % SODIUM CHLORIDE 50 ML IV ×2 (17:51→22:13)
[2025-02-25 17:58] LABS: POC Glucose,Bedside 225 gm/dL (70-110)
[2025-02-25 19:49] LABS: Lactic Acid Follow Up (RFLX 1) 1.1 mmol/L (0.7-2.1)
[2025-02-25 20:02] LABS: POC Glucose,Bedside 243 gm/dL (70-110)
[2025-02-25] MEDS: INSULIN GLARGINE 100 UNITS/ML 3ML FLEXPEN 15 UNIT SUBCUT (20:11)
[2025-02-25] MEDS: VANCOMYCIN HCL 2,000 MG in 0.9 % SODIUM CHLORIDE 250 ML 125 MG IV (22:53)
[2025-02-26] VITALS (8 sets, daily range): BP systolic 149–173; BP diastolic 82–98; PULSE 86–97; RESP 16–20; TEMP 36.7–37.2; O2SAT 97–98; BMI 28.3
[2025-02-26] MEDS: HYDROCODONE/APAP 5/325 MG TABLET 1 TAB PO ×2 (03:27→12:00)
[2025-02-26] MEDS: PIPERACILLIN/TAZO 3.375 GM in 0.9 % SODIUM CHLORIDE 50 ML IV ×4 (05:01→22:17)
[2025-02-26 05:10] LABS: POC Glucose,Bedside 187 gm/dL (70-110)
[2025-02-26] MEDS: humaLOG 100 UNITS/ML 10ML VIAL (SSI) SUBCUT ×4 (05:15→20:16)
--- NOTE | 2025-02-26 05:34 | PC.NURSE ---
Pt AOx4. Had some pain early this morning. Pt reports relief after administration of prn pain medication per AUG. Dressing on R foot is c/d/i. Currently resting in bed with eyes open. Denies pain or any additional needs at this time. Bed is low, locked, and call light is in reach.
[2025-02-26 05:48] LABS: Alanine Aminotransferase 21 U/L (12-78); Albumin Level 3.4 g/dl (3.5-5.0); Albumin/Globulin Ratio 1.2 (1.1-1.8); Alkaline Phosphatase 97 U/L (38-126); Anion Gap 8.7 mEq/L (5-15); Aspartate Amino Transferase 26 U/L (17-59); Bilirubin,Total 0.8 mg/dl (0.2-1.3); Blood Urea Nitrogen 6 mg/dl (9-20); Calcium 8.6 mg/dl (8.4-10.2); Carbon Dioxide 27 mmol/L (22.0-30.0); Chloride 99 mmol/L (98-107); Cholesterol 182 mg/dl (140-200); Creatinine Clearance Estimated 218 mL/min (50-200); Creatinine,Serum 0.60 mg/dl (0.66-1.25); Estimated Glomerular Filt Rate 141 ml/min (>60); GFR (African American) 171 ML/MIN (>60); Globulin 2.9 g/dL (1.3-3.2); Glucose 193 mg/dl (74-100); HDL Cholesterol 36 mg/dl (40-60); Magnesium 2.0 mg/dl (1.6-2.3); Potassium 3.7 mmoL/L (3.5-5.1); Sodium 131 mmol/L (136-145); Total Protein,Serum 6.3 g/dl (6.3-8.2); Triglycerides 109 mg/dl (30-150)
[2025-02-26 05:59] LABS: C-Reactive Protein 75.4 mg/L (0-4)
[2025-02-26 06:11] LABS: Hematocrit 37.6 % (42.0-52.0); Immature Granulocytes % 0.9 %; Mean Corpuscular HGB Conc 34.6 g/dL (31.8-35.4); Mean Corpuscular Hemoglobin 30.2 pg (27.0-31.2); Mean Corpuscular Volume 87.4 fl (80-94); Nucleated Red Blood Cells % 0 %; Platelet Count 231 K/mm3 (142-424); Red Blood Count 4.30 M/mm3 (4.60-6.20); Red Cell Distribution Width-SD 38.9 fL; White Blood Count 10.6 K/mm3 (4.8-10.8)
[2025-02-26 06:24] LABS: Hemoglobin 12.8 g/dL (14.1-18.0)
--- NOTE | 2025-02-26 07:50 | EXP.ANES.II ---
[facility] Anesthesia Record Part II Anesthesia Record Part II Discharge Time: 16:52 Destination: Medical Surgical Department PACU nurse assessment reviewed?: Yes Patient Condition:: Good Anesthesia Complications:: None Swallowing reflex intact?: Yes Airway Patency: Patent Cyanosis?: No Blood Pressure: 152/82 SaO2: 98 Respiratory Rate: 17 Pulse Rate: 97 Temperature: 98.1 F Mental Status: Alert & Oriented Pain level:: 0 Nausea and/or vomitting:: None Intake, IV Amount: 0 Hydration: Adequate
--- NOTE | 2025-02-26 08:27 | P.PN_ITS ---
<Statement entered by Ciaran Chandler MD - 02/26/25 15:03> Rounded on patient after nurse practitioner. Personally examined and interviewed patient. Agree with exam findings and care plan as documented. Subjective *Date: 02/26/25 *Time: 10:26 Interval history: Patient doing well this morning. Status post right hallux amputation, dressing on right foot clean dry and intact. Patient states that he did work with PT this morning and did well. He is concerned about going back to work, encouraged him to speak with Dr. Tan about work restrictions. Plans for continuing IV antibiotics, anticipate discharge tomorrow morning. Medical Exam Vital signs and Labs for Last 24 Hours: Vital Signs Temp Pulse Pulse Resp BP BP Pulse Ox 02/26/25 08:00 98.4 F 92 H 18 159/93 H 97 02/26/25 07:51 17 02/26/25 06:45 02/26/25 05:00 02/26/25 04:00 98.2 F 86 16 161/90 H 98 02/26/25 03:00 02/26/25 01:00 02/26/25 00:00 98.0 F 88 20 155/89 H 98 02/25/25 23:00 02/25/25 21:00 02/25/25 20:00 02/25/25 18:55 98.1 F 98 H 18 164/88 H 98 02/25/25 18:25 98.2 F 98 H 18 163/89 H 99 02/25/25 18:07 02/25/25 17:55 98.1 F 99 H 18 174/99 H 98 02/25/25 17:40 97.9 F 101 H 18 176/101 H 99 02/25/25 17:25 98.3 F 98 H 18 173/101 H 99 02/25/25 17:10 98.1 F 109 H 18 177/103 H 100 02/25/25 17:00 02/25/25 16:52 97 H 17 152/82 H 98 02/25/25 16:42 100 H 17 154/86 H 96 02/25/25 16:32 102 H 18 155/97 H 98 02/25/25 16:29 97.0 F L 104 H 14 158/84 H 02/25/25 16:22 97.0 F L 106 H 18 158/84 H 98 02/25/25 14:48 97.5 F L 103 H 18 181/101 H 98 02/25/25 14:23 98.8 F 103 H 18 167/93 H 100 02/25/25 13:05 98.8 F 103 H 17 167/93 H 100 02/25/25 12:50 98.5 F 118 H 18 195/102 H 02/25/25 12:42 103 H 14 196/104 H 97 02/25/25 12:20 02/25/25 12:00 108 H 10 L 196/104 H 99 02/25/25 11:09 110 H 18 213/104 H 100 02/25/25 10:21 112 H 16 201/110 H 99 02/25/25 09:39 98.4 F 118 H 16 211/121 H 100 02/25/25 09:30 121 H 211/121 H 99 O2 Del Method 02/26/25 08:00 Room Air 02/26/25 07:51 02/26/25 06:45 Room Air 02/26/25 05:00 Room Air 02/26/25 04:00 Room Air 02/26/25 03:00 Room Air 02/26/25 01:00 Room Air 02/26/25 00:00 Room Air 02/25/25 23:00 Room Air 02/25/25 21:00 Room Air 02/25/25 20:00 Room Air 02/25/25 18:55 Room Air 02/25/25 18:25 Room Air 02/25/25 18:07 Room Air 02/25/25 17:55 Room Air 02/25/25 17:40 Room Air 02/25/25 17:25 Room Air 02/25/25 17:10 Room Air 02/25/25 17:00 Room Air 02/25/25 16:52 Room Air 02/25/25 16:42 Room Air 02/25/25 16:32 Room Air 02/25/25 16:29 02/25/25 16:22 Room Air 02/25/25 14:48 Room Air 02/25/25 14:23 Room Air 02/25/25 13:05 Room Air 02/25/25 12:50 Room Air 02/25/25 12:42 02/25/25 12:20 Room Air 02/25/25 12:00 02/25/25 11:09 Room Air 02/25/25 10:21 02/25/25 09:39 Room Air 02/25/25 09:30 Intake and Output 02/25/25 02/26/25 02/26/25 23:59 07:59 15:59 Intake Total 1200 / 4520 540 / 880 340 / 880 Balance 1200 / 4520 540 / 880 340 / 880 Intake: Intake, Oral Amount 400 / 640 240 / 580 340 / 580 Intake, Total IV Amount 800 / 3880 300 / 300 Piperacillin/Tazo 3.375 gm In 0 100 / 100 50 / 50 .9 % Sodium Chloride 50 ml @ 100 mls/hr IV Q6H [facility] Rx#: [id number] Vancomycin HCl 2,000 mg In 0.9 250 / 250 % Sodium Chloride 250 ml @ 125 mls/hr IV Q12H [facility] Rx#:[id number] Other: Weight 108.664 kg Patient Weight 02/26/25 23:59 Weight 108.664 kg Laboratory Results - last 24 hr 02/25/25 09:42: WBC 16.2 H, RBC 5.21, Hgb 15.6, Hct 44.8, MCV 86.0, MCH 29.9, MCHC 34.8, RDW 11.9, Plt Count 250, MPV 9.3, Neut % (Auto) 76.9, Lymph % (Auto) 13.7, [place] % (Auto) 7.5, Eos % (Auto) 0.6, Baso % (Auto) 0.6, Neut # (Auto) 12.5 H, Lymph # (Auto) 2.2, [place] # (Auto) 1.2 H, Eos # (Auto) 0.1, Baso # (Auto) 0.1, VBG pH 7.36, VBG pCO2 43.1, VBG pO2 37.5, VBG HCO3 23.9, VBG Total CO2 25.2, VBG O2 Saturation 75.5 H, VBG Base Excess -1.5, VBG Lactic Acid 2.5 H, Sodium 130 L, Potassium 3.7, Chloride 93 L, Carbon Dioxide 23, Anion Gap 17.7 H, BUN 11, Creatinine 0.70, Estimated Creat Clear 190, Estimated GFR 118, Est GFR ( Amer) 143, Glucose 346 H, Hemoglobin A1c > 14.0 H, Calcium 9.5, Total Bilirubin 1.4 H, AST 33, ALT 30, Alkaline Phosphatase 147 H, C-Reactive Protein 102.5 H, Total Protein 8.5 H, Albumin 4.5, Globulin 4.0 H, Albumin/Globulin Ratio 1.1, HCV Ab PRECIOUS w/Rflx PCR Qn Negative, HIV Ag/Ab Combo Qual Negative 02/25/25 14:47: POC Glucose 274 H 02/25/25 17:47: POC Glucose 225 H 02/25/25 18:27: Lactate 1.1 02/25/25 19:49: POC Glucose 243 H 02/26/25 05:00: POC Glucose 187 H 02/26/25 05:03: WBC 10.6 D, RBC 4.30 L, Hgb 12.8 L D, Hct 37.6 L, MCV 87.4, MCH 30.2, MCHC 34.6, RDW 12.0, Plt Count 231, MPV 9.3, Neut % (Auto) 63.3, Lymph % (Auto) 22.5, [place] % (Auto) 8.9, Eos % (Auto) 3.7, Baso % (Auto) 0.7, Neut # (Auto) 6.7, Lymph # (Auto) 2.4, [place] # (Auto) 1.0, Eos # (Auto) 0.4, Baso # (Auto) 0.1, ESR 42 H, Sodium 131 L, Potassium 3.7, Chloride 99, Carbon Dioxide 27, Anion Gap 8.7, BUN 6 L D, Creatinine 0.60 L, Estimated Creat Clear 218, Estimated GFR 141, Est GFR ( Amer) 171, Glucose 193 H D, Calcium 8.6, Magnesium 2.0, Total Bilirubin 0.8, AST 26, ALT 21 D, Alkaline Phosphatase 97, C-Reactive Protein 75.4 H D, Total Protein 6.3 D, Albumin 3.4 L D, Globulin 2.9, Albumin/Globulin Ratio 1.2, Triglycerides 109, Cholesterol 182, LDL Cholesterol Direct 116.01, VLDL Cholesterol 22, HDL Cholesterol 36 L, Cholesterol/HDL Ratio 5.1 H I & O for Labs for Last 24 Hours: Intake & Output 02/23/25 02/24/25 02/25/25 02/26/25 23:59 23:59 23:59 23:59 Intake Total 4280 / 4520 880 / 880 Balance 4280 / 4520 880 / 880 Weight 107.076 kg 108.664 kg Microbiology Reports for the Last 24 Hours: Microbiology 02/25/25 15:25 Toe,Right Great Gram Stain - Final 02/25/25 15:25 Toe,Right Great Gram Stain - Final Constitutional: Present no acute distress, average body habitus and cooperative Head: Present atraumatic Eyes: Present as per HPI ENT: Present normal exam Neck: Present normal inspection Respiratory: Present CTA bilaterally, able to speak in complete sentences and symmetric chest movement; Absent wheezes or crackles Cardiac: Present Reg Rate and Rhythm; Absent No Murmur GI: Present soft and normal bowel sounds; Absent distention or tenderness Rectal (male): Present deferred (male): Present deferred Comment:: Right hallux amputation with dressing clean dry and intact Skin: Present intact and dry Neuro: Present alert, awake and oriented x 3 Assessment and Plan *Assessment and plan (1) Sepsis: Status: Acute Category: Medical Code(s): A41.9 - Sepsis, unspecified organism (2) Gangrenous: Status: Acute Category: Medical Code(s): I96 - Gangrene, not elsewhere classified (3) Cellulitis: Problem Comment: Right hallux DFU from stepping on 02/21/25, gangrene ulcer, cellulitis started Saturday02/22/25 Status: Acute Qualifiers: Laterality: right Site of cellulitis: extremity Site of cellulitis of extremity: toe Qualified Code(s): L03.031 - Cellulitis of right toe Category: Medical Code(s): L03.90 - Cellulitis, unspecified (4) Edema of right foot: Status: Acute Category: Medical Code(s): R60.0 - Localized edema (5) Elevated hemoglobin A1c: Status: Acute Category: Medical Code(s): R73.09 - Other abnormal glucose (6) Hypertension: Status: Acute Category: Medical Code(s): I10 - Essential (primary) hypertension (7) Degenerative disc disease: Status: Chronic Qualifiers: Spinal region: lumbar Qualified Code(s): M51.36 - Other intervertebral disc degeneration, lumbar region Category: Medical Plan Mr. Ronquillo is a 54-year-old male who presented to the ER due to an infection in his right great toe. He has a primary medical history of DDD with pain pump placement, diabetes mellitus type 2 (A1c >14), and hypertension. He states that he had a splinter in his right great toe and dorsal forefoot causing him pain on Saturday. He was able to pull the splinter out and clean the site but it continued to look infected and was not getting better, so he presented today to the emergency department for further evaluation. He denies fever, chills, chest pain, abdominal pain, nausea, vomiting, diarrhea. He does complain of deep pain into his foot that is intermittent, worse with ambulation or movement. The ED provider consulted hospital medicine for admission, I agreed to admit the patient for further care. Podiatry also consulted for surgical intervention. Plan of care as follows: #Necrotizing soft tissue infection, right great toe #Gangrenous of right great toe #Edema of right foot/cellulitis #Sepsis #S/p right hallux amputation ? Assessment revealed necrotic, gangrenous infection of right great toe and erythema and cellulitis of right dorsum foot. CT imaging shows cellulitis with subcutaneous air of the great toe consistent with gangrene, no peripheral enhancing fluid collection identified. Patient was taken down to surgery yesterday afternoon, right hallux amputation performed. Dressing clean dry and intact today. Patient has been working with PT and states he has done well. Per podiatry patient needs 48 hours total of IV antibiotics necessitating inpatient care, plans for discharge home tomorrow. ? Patient initially met sepsis criteria, tachycardic, elevated WBC 16.2, lactate 2.5. Blood cultures pending. Patient received full sepsis bolus in the ED. He was started empirically on clindamycin, vancomycin, Zosyn. Will continue Zosyn every 6 hours and vancomycin dosed by pharmacy. Patient WBC stabilized at 10.6. ? Patient complains of mild to moderate pain worse with movement. Acetaminophen, Dutton, morphine IV ordered for mild to severe pain. Monitoring for toxicity. #Elevated A1c #Diabetes mellitus type 2 ? Patient states he has a known history of diabetes but does not take any medication at this time. He has previously taken metformin. Patient's A1c on admission <14%. Patient started on sliding scale insulin and Lantus 20 units nightly during admission. ACHS fingersticks ordered. #Hypertension ? Patient initially hypertensive 200s/100s in the ED, started on lisinopril 10 mg daily. Patient's blood pressure improved today. Continue to monitor. #DDD ? Patient has degenerative disc disease with pain pump placement. Patient state s he had his pain pump filled yesterday. Full code VTE?Lovenox 40 mg subcu Diabetic diet Ambulate as tolerated
[2025-02-26] MEDS: LISINOPRIL 10MG TABLET 10 MG PO (08:51)
--- NOTE | 2025-02-26 09:00 | HMH.PTEV ---
Physical Therapy Evaluation Rehab PT IP Evaluation Start: 02/25/25 16:32 Freq: ONCE Status: Active Protocol: Document 02/26/25 08:40 MYA (Rec: 02/26/25 08:56 MYA [id number]) Subjective/History History History Pt presents 1 day s/p right foot incision and drainage, right foot wide excisional debridement, and right hallux amputation 02/25/25. Pt's WBing orders are NWB, ok for PWB for short distances in short fracture boot. Subjective Subjective Pt reports he lives in an apartment alone. Pt's apartment has a ramped entrance and one threshold to enter home. Pt reports he owns a RW that was given to him by a friend but pt is not sure of the walker type or walker condition. Pt reports he has family, friends, and a girlfriend who can check on him daily. [facility] How much help from another person do you currently need... Turning from your None back to your side while in a flat bed without using bedrails? Moving from lying on None back to sitting on the side of a flat bed without using bedrails? Moving to and from a None bed to a chair ( including a wheelchair)? Standing up from a None chair using your arms? (e.g., wheelchair, bedside chair) Walking in hospital A little room? Climbing 3-5 steps A little with a railing? Mobility Score 22 Mobility Level [facility] Mobility 7 Walk 25 feet or more Mobility Calculator Rehab PT IP Eval Objective Appearance Patient Behavior Appropriate,Cooperative Patient Orientation Person,Place,Situation Difficulty following none instructions Speech Pattern Clear Ambulation Patient Able to Yes Ambulate Ambulation Observation IP General Gait No Deviations/Normal Pattern Observation Ambulation Distance 20 (feet) Ambulation Assistive Rolling Walker Device Ambulation Ability Supervision/Stand by Balance Ability to Arise Able, uses arms to help Sitting Balance Steady, safe Standing Balance Steady, wide stance Dynamic Sitting Good Balance Ability Dynamic Standing Fair Balance Ability Transfers Bed Transfer Ability Independent Sit to Stand Bed Supervision/Stand by Transfer Ability Rehab PT IP prob,goals,plan Problems Date of Evaluation: 02/26/25 PT IP Problems Transfers,Gait,Balance,Safety Rehab Potential Rehab Potential Good Plan PT Intervention Plan Transfers,Gait,Balance,Safety,Therapeutic Exercise Other Intervention 1-2 times Plan PT Plan Frequency Daily Duration LOS Discharge Goals Bed Transfer Ability Independent Sit to Stand Chair Independent Transfer Ability Ambulation Assistive Rolling Walker Device Ambulation Distance 100 (feet) Discharge Plan PT Discharge Plan Pt presents below baseline in gait and balance. Pt demo'd good compliance with NWB RLE when using RW. PWB in fracture boot not assessed as pt does not yet have a short fracture boot. Pt would benefit from skilled acute care PT while at [facility] to address deficits and improve safety. Pt most appropriate to d/c home with family/friend assist as needed. Pt may benefit from RW prior to d/c from [facility]. PT recommending PT services to address deficits. Eval Complexity Eval Charge Codes 74351 - Moderate Complexity PHYSICIAN CERTIFICATION: I certify the specified therapy services for Jeffery Schwartzp are required, authorized, and reviewed every 30 days.
--- NOTE | 2025-02-26 09:53 | SW/DCPLANNER ---
Addendum entered by Stephanie Bone 02/26/25 13:03: [facility] has accepted patient for services. Addendum entered by Samantha Gonzales 02/26/25 11:54: [facility] was not able to accept patient due to his insurance. Ramona with [employer] [facility] sent his information to their sister site [facility] and i will update once i hear back if they can accept patient or not. Amber Nixon Original Note: Spoke with patient regarding home health services once he is medically stable and ready for discharge. Patient stated that he is interested and that he does not have a preference in what agency i send his information to. I advised patient that it could be hard to get him home health services with his insurance and i asked patient if he was able to come back here to the hospital for outpatient therapy and wound care and patient stated that he does not have a problem with coming back up here. I faxed patient's information to [facility] and will update once i hear back from them. Amber Nixon
[2025-02-26 11:52] LABS: POC Glucose,Bedside 263 gm/dL (70-110)
[2025-02-26] MEDS: VANCOMYCIN HCL 2,000 MG in 0.9 % SODIUM CHLORIDE 250 ML 125 MG IV ×2 (12:26→23:17)
--- OUTSIDE RECORDS SUMMARY | 2025-02-26 13:01 | XMS_ITS | Patient Health Record ---
Author Organization [facility] Address [address] [place] [address] Care Team Providers Care Computer Systems Technician Name Role Phone Reyes Landers II Unavailable Oliva, Ciaran Unavailable [phone] Allergies No Known Allergies Reason For Referral [...] Diagnosis [facility] [address] [place] [address] 03/25/2024 Reyes Landers [facility] [address] [place] [address] 07/17/2024 Reyes Landers [facility] [address] [place] [address] 11/06/2024 Reyes Landers [facility] [address] [place] [address] 02/24/2025 Reyes Landers [facility] [address] [place] [address] 03/25/2024 Reyes Landers Other retirement (current) drug therapy Z79.899 [facility] [address] [facility] [address] [place] [address] 11/06/2024 Reyes Landers Other keno terminal operator (current) drug therapy Z79.899 Assessments Encounter Date Diagnosis (ICD Code) Assessment Notes Treatment Notes Treatment Clinical Notes Section Notes 03/25/2024 Other keno terminal operator (current) drug therapy (ICD-10 - Z79.899) 03/25/2024 [...] him on a more remote basis with [facility] doing the pain pump refills unless changes need to be made. 11/06/2024 Other keno terminal operator (current) drug therapy (ICD-10 - Z79.899) 03/25/2024 [...] infusion rate of 0.6 mg/day of morphine. Plan Of Treatment Pending Test Test Name Order Date Urine Test ANALYZER 03/25/2024 Urine Test ANALYZER 11/06/2024 Next Appt Details Provider Name:Reyes Carr roxie, 06/18/2025 01:00:00 PM, [address], [address], [place], [address], Provider Name:Reyes Carr roxie, 06/18/2025 03:30:00 PM, [address], [address], [place], [address], Insurance Providers Payer Name Payer Address Payer Phone Subscriber Number Group Number Insured Name Patient Relationship to Insured Coverage Start Date Coverage End Date [id number] [address] [address] [place] [id number] Jeffery Ronquillo Self - patient is the insured 4 Medical (General) History Medical History History ICD Code High cholesterol Diabetes Depression Anxiety Surgical History Surgery Date(Month/Year) ITP placement/ Dr. Oconnor surgery on LT arm/ [facility] 2016 surgery on pelvis/ [facility] 2016 Hospitalization History Reason Date(Month/Year) Stayed at after surgeries 2016
--- OUTSIDE RECORDS SUMMARY | 2025-02-26 13:01 | XMS_ITS | Clinical Summary ---
Author Organization Healthcare Address [address] [place] [address] Care Team Providers Care Mail Clerk Name Role Phone Vish Barakat MD Primary Care Provider + [phone] Family History Medical History Relation Name Comments [...] of Treatment Not on file Care Teams Mail Clerk Relationship Specialty Start Date End Date Vish Barakat MD [address] [place] [address] PCP - General 10/14/20
--- OUTSIDE RECORDS SUMMARY | 2025-02-26 13:01 | XMS_ITS | Clinical Summary ---
Author Organization [facility] Address [address] [place] [address] Care Team Providers Care Email Marketer Name Role Phone Provider, No Known Primary [...] of 2) 2022 INFLUENZA VACCINE 01/01/2025 Insurance [employer] Care Teams Email Marketer Relationship Specialty Start Date End Date Provider, [place] [address] PCP - General 07/23/18
[2025-02-26 16:49] LABS: POC Glucose,Bedside 278 gm/dL (70-110)
--- NOTE | 2025-02-26 17:52 | PC.NURSE ---
pt is A&Ox4. he had his right great toe amputated yesterday because of infection and necrotic tissue. a dressing is in place and is clean, dry, and intact. i changed the dressing this morning. the stitches are intact and the area is nice and pink, no swelling. i used xeroform and gauze pads soaked in betadine. it is wrapped with curlex and an monty bandage to hold it in place. pt got up with PT today and did great. he has a fracture boot to take home with him. discharge possibly tomorrow. pt has no other concerns at this time. call light is within reach.
[2025-02-26] MEDS: POLYETHYLENE GLYCOL 3350 17 GM PACKET PO (19:55)
[2025-02-26 20:07] LABS: POC Glucose,Bedside 203 gm/dL (70-110)
[2025-02-26] MEDS: INSULIN GLARGINE 100 UNITS/ML 3ML FLEXPEN 20 UNIT SUBCUT (20:17)
[2025-02-26 22:52] LABS: Vancomycin,Trough 8.3 ug/mL (5.0-10.0)
[2025-02-27 04:00] VITALS: BP 149/94; PULSE 83; RESP 16; TEMP 37; O2SAT 98; BMI 27.4
--- NOTE | 2025-02-27 04:40 | PC.NURSE ---
Pt A&OX4 and has tolerated room air. Dressing to right foot has remained c/d/i. He has denied any pain. He has received IV Abx throughout the shift. No complaints at this time, call light within reach.
[2025-02-27] MEDS: humaLOG 100 UNITS/ML 10ML VIAL (SSI) SUBCUT ×2 (05:23→12:01)
[2025-02-27] MEDS: PIPERACILLIN/TAZO 3.375 GM in 0.9 % SODIUM CHLORIDE 50 ML IV ×2 (05:24→12:01)
[2025-02-27 05:34] LABS: POC Glucose,Bedside 176 gm/dL (70-110)
[2025-02-27 07:38] VITALS: BP 160/97; PULSE 89; RESP 16; TEMP 36.8; O2SAT 98
--- NOTE | 2025-02-27 07:38 | EXP.DC.SUM ---
General Admission date:: 02/25/25 Discharge date: 02/27/25 HPI HPI HPI: Mr. Ronquillo is a 54-year-old male who presented to the ER due to an infection in his right great toe. He has a primary medical history of DDD with pain pump placement, diabetes mellitus type 2 (A1c >14), and hypertension. He states that he had a splinter in his right great toe and dorsal forefoot causing him pain on Saturday. He was able to pull the splinter out and clean the site but it continued to look infected and was not getting better, so he presented today to the emergency department for further evaluation. He denies fever, chills, chest pain, abdominal pain, nausea, vomiting, diarrhea. He does complain of deep pain into his foot that is intermittent, worse with ambulation or movement. Hospital Course Hospital Course Hospital Course: Mr. Ronquillo is a 54-year-old male who presented to the ER due to an infection in his right great toe. He has a primary medical history of DDD with pain pump placement, diabetes mellitus type 2 (A1c >14), and hypertension. He states that he had a splinter in his right great toe and dorsal forefoot causing him pain on Saturday. He was able to pull the splinter out and clean the site but it continued to look infected and was not getting better, so he presented today to the emergency department for further evaluation. He denies fever, chills, chest pain, abdominal pain, nausea, vomiting, diarrhea. He does complain of deep pain into his foot that is intermittent, worse with ambulation or movement. The ED provider consulted hospital medicine for admission, I agreed to admit the patient for further care. Podiatry also consulted for surgical intervention. Amputation of toe performed on 02/25. Source control obtained with infection. Plan to continue antibiotics for 14 days total. Follow with podiatry in the next 2 to 3 days for wound evaluation. Stable discharge home. Problems addressed as follows: #Necrotizing soft tissue infection, right great toe #Gangrenous of right great toe #Edema of right foot/cellulitis #Sepsis #S/p right hallux amputation ? Assessment revealed necrotic, gangrenous infection of right great toe and erythema and cellulitis of right dorsum foot. CT imaging shows cellulitis with subcutaneous air of the great toe consistent with gangrene, no peripheral enhancing fluid collection identified. Patient was taken down to surgery on 02/25. Right hallux amputation performed. Dressing remain clean dry and intact. Wound was evaluated on day of discharge and had some mild erythema proximal to incision but not warm. Most consistent with hematoma. Systemic labs showing improvement with normal white count at 9.7, CRP 52, ESR 43. Overall seeing improvement inflammatory markers with stable white count. Continue levofloxacin and doxycycline to complete 14 days total of therapy. Plan to follow-up with podiatry on Saturday for wound evaluation. Patient informed to walk into clinic 830 on Saturday. Also has follow-up appointment later in the week. Home health ordered for dressing changes twice weekly at home. - Therapy worked with patient, has short surgical boot. Okay to bear weight with boot. Otherwise heel touch only without boot. ? Patient initially met sepsis criteria, tachycardic, elevated WBC 16.2, lactate 2.5. Blood cultures remain negative. Patient received full sepsis bolus in the ED. He was started empirically on clindamycin, vancomycin, Zosyn. ? Patient complains of mild to moderate pain worse with movement. Discharged with short course of hydrocodone. #Elevated A1c #Diabetes mellitus type 2 ? Patient states he has a known history of diabetes but does not take any medication at this time. He has previously taken metformin. Patient's A1c on admission <14%. Started on long-acting insulin with sliding scale. Continue Lantus nightly at 25 units. Initiated on metformin 500 mg twice daily. Morning glucose on day of discharge of 176. Recommended monitoring glucose twice daily and follow-up with PCP for further adjustment. - Meter, lancets, test strips ordered at discharge #Hypertension ? Patient initially hypertensive 200s/100s in the ED, started on lisinopril 10 mg daily. Patient's blood pressure better controlled. Will need further adjustment in the outpatient setting. Suspect a component of pain impacting his hypertension as well. Close follow-up with PCP to establish care and for medication adjustments. - Of note has elevated ASCVD risk greater than 10%. Will initiate Lipitor at discharge to decrease CV risk. #DDD ? Patient has degenerative disc disease with pain pump placement. Patient states he had his pain pump filled prior to admission Total time spent on discharge 42 minutes in counseling, documentation, chart review, and direct care with patient. Exam Data for Last 24 hours Vital signs and Labs for Last 24 Hours: Temp Pulse Resp BP Pulse Ox O2 Del Method 98.6 F 83 16 149/94 H 98 Room Air 02/27/25 04:00 02/27/25 04:00 02/27/25 04:00 02/27/25 04:00 02/27/25 04:00 02/27/25 06:39 Laboratory Results - last 24 hr 02/26/25 11:36: POC Glucose 263 H 02/26/25 16:39: POC Glucose 278 H 02/26/25 19:57: POC Glucose 203 H 02/26/25 22:08: Vancomycin Trough 8.3 02/27/25 05:23: POC Glucose 176 H I & O for Last 24 hours: Intake & Output 02/24/25 02/25/25 02/26/25 02/27/25 23:59 23:59 23:59 23:59 Intake Total 4280 / 4520 2580 / 2580 300 / 300 Output Total 1475 / 1475 1200 / 1200 Balance 4280 / 4520 1105 / 1105 -900 / -900 Weight 107.076 kg 108.664 kg 105.506 kg Microbiology Reports for the Last 24 Hours: Microbiology 02/25/25 15:30 Foot,Right - Right Bone Culture - Preliminary 02/25/25 15:25 Toe,Right Great Gram Stain - Final 02/25/25 15:25 Toe,Right Great Wound Culture - Preliminary Gram Positive Cocci 02/25/25 15:30 Toe,Right Great Gram Stain - Final 02/25/25 15:30 Foot,Right Bone Culture - Preliminary Gram Negative Rods 02/25/25 15:25 Toe,Right Great Gram Stain - Final 02/25/25 15:25 Toe,Right Great Wound Culture - Preliminary Gram Positive Cocci 02/25/25 10:00 Blood Blood Culture - Preliminary NO GROWTH AFTER 24 HOURS 02/25/25 10:00 Blood Blood Culture - Preliminary NO GROWTH AFTER 24 HOURS Constitutional Constitutional: no acute distress, average body habitus, chronically ill appearing and cooperative *Routine HEENT Exam Head: Present normocephalic Eye: Present EOMI and PERRL ENT: Present mucous membranes moist *Routine Neck Exam Neck: Present supple; Absent lymphadenopathy *Routine Respiratory Exam Respiratory: Present CTA bilaterally; Absent rhonchi, wheezes or crackles *Routine Cardiovascular Exam Cardiovascular: Present RRR *Routine Abdominal Exam Abdominal: Present soft and normoactive bowel sounds; Absent tenderness *Routine Rectal Exam Patient deferred: visual exam *Routine Exam Patient deferred: penile exam *Routine Extremities Exam Extremities: Absent cyanosis, clubbing or edema Comments: Absent right great toe, surgical wound clean. No active bleeding. Does have some mild redness proximal to wound on dorsum of foot but it is not hot. Minimal tenderness with palpation, concerning for hematoma. Sutures intact. *Routine Skin Exam Skin: Present intact and warm; Absent rash *Routine Neurological Exam Neurological: Present alert, oriented X3 and moving all extremities; Absent altered mental status Results Data Completed and Pending Labs on day of discharge: Labs from last 24 hours 02/27/25 02/26/25 02/26/25 05:23 22:08 19:57 POC Glucose 176 H 203 H Vancomycin Trough 8.3 02/26/25 02/26/25 16:39 11:36 POC Glucose 278 H 263 H Vancomycin Trough Preliminary micro results at discharge 02/25/25 15:30 Bone Culture - Preliminary Foot,Right - Right 02/25/25 15:25 Wound Culture - Preliminary Toe,Right Great Gram Positive Cocci 02/25/25 15:30 Bone Culture - Preliminary Foot,Right Gram Negative Rods 02/25/25 15:25 Wound Culture - Preliminary Toe,Right Great Gram Positive Cocci 02/25/25 10:00 Blood Culture - Preliminary Blood NO GROWTH AFTER 24 HOURS 02/25/25 10:00 Blood Culture - Preliminary Blood NO GROWTH AFTER 24 HOURS DS: Diagnosis Discharge Diagnosis (1) Sepsis: Status: Acute Code(s): A41.9 - Sepsis, unspecified organism (2) Gangrenous: Status: Acute Code(s): I96 - Gangrene, not elsewhere classified (3) Cellulitis: Status: Acute Code(s): L03.90 - Cellulitis, unspecified Qualifiers: Laterality: right Site of cellulitis: extremity Site of cellulitis of extremity: toe Qualified Code(s): L03.031 - Cellulitis of right toe Problem details: Right hallux DFU from stepping on splinter 02/21/25, gangrene ulcer, cellulitis started Saturday02/22/25 (4) Edema of right foot: Status: Acute Code(s): R60.0 - Localized edema (5) Elevated hemoglobin A1c: Status: Acute Code(s): R73.09 - Other abnormal glucose (6) Hypertension: Status: Acute Code(s): I10 - Essential (primary) hypertension (7) Degenerative disc disease: Status: Chronic Qualifiers: Spinal region: lumbar Qualified Code(s): M51.36 - Other intervertebral disc degeneration, lumbar region Meds Home Medications and Allergies Home Medications ?Medication ?Instructions ?Recorded ?Confirmed ?Type ashwagandha extract 120 mg capsule 120 mg PO DAILY 02/25/25 02/25/25 History magnesium oxide 150 mg-herbal 1 tab PO DAILY 02/25/25 02/25/25 History drugs tablet (Beet Root-Magnesium) multivitamin 1 tab PO DAILY 02/25/25 02/25/25 History vitamin B complex 1 tab PO DAILY 02/25/25 02/25/25 History doxycycline hyclate 100 mg capsule 100 mg PO BID 12 days #24 caps 02/26/25 Rx levofloxacin 750 mg tablet 750 mg PO DAILY #12 tabs 02/26/25 Rx atorvastatin 20 mg tablet (Lipitor) 20 mg PO HS #30 tabs 02/27/25 Rx blood sugar diagnostic (Accu-Chek #100 ea 02/27/25 Rx Guide test strips) blood-glucose meter (Accu-Chek #1 ea 02/27/25 Rx Guide Glucose Meter) hydrocodone 5 mg-acetaminophen 325 1 tab PO Q6H PRN severe pain 02/27/25 Rx mg tablet (scale score 7-10) #12 tabs insulin glargine 100 unit/mL (3 25 unit (0.25 mL) SQ HS #15 mL 02/27/25 Rx mL) subcutaneous pen (Lantus Solostar U-100 Insulin) lancets (Lancets, Super Thin) #100 ea 02/27/25 Rx lisinopril 10 mg tablet 10 mg PO DAILY #30 tabs 02/27/25 Rx metformin 500 mg tablet 500 mg PO BID #60 tabs 02/27/25 Rx pen needle, diabetic 31 gauge x #100 ea 02/27/25 Rx 1/4 New Prescriptions to Start Prescriptions: atorvastatin [Lipitor] Ciaran Chandler blood sugar diagnostic [Accu-Chek Guide test strips] Ciaran Chandler blood-glucose meter [Accu-Chek Guide Glucose Meter] Ciaran Chandler doxycycline hyclate Ciaran Chandler hydrocodone-acetaminophen RameshCiaran insulin glargine [Lantus Solostar U-100 Insulin] Ramesh,Ciaran lancets [Lancets, Super Thin] Ramesh,Ciaran levofloxacin Ramesh,Ciaran lisinopril Ramesh,Ciaran metformin Ramesh,Ciaran pen needle, diabetic Ramesh,Ciaran Allergies Allergy/AdvReac Type Severity Reaction Status Date / Time No Known Allergies Allergy Verified 02/25/25 09:47 Discharge Plan Disposition Patient Disposition: Home Health Service Condition: Good Discharge Order Discharge Orders: Discharge Order (Routine); Ordered 02/27/25 Ordered By: Ciaran Chandler Follow up Plan Follow up with: Houston Greenfield DO [Staff Physician, Family Practice] - 03/04/25 10:30 am Carina Doty DPM [Staff Physician, Podiatry] - 03/04/25 11:15 am Prescriptions/Medication Reconciliation: New levofloxacin 750 mg tablet 750 mg PO DAILY Qty: 12 0RF doxycycline hyclate 100 mg capsule 100 mg PO BID 12 Days Qty: 24 0RF metformin 500 mg tablet 500 mg PO BID Qty: 60 0RF (DME) pen needle, diabetic 31 gauge x 1/4 needle See Rx Instructions .ROUTE .MEDSUPPLY Qty: 100 0RF Rx Instructions: daily with insulin (DME) lancets [Lancets, Super Thin] Misc See Rx Instructions .Route Qty: 100 0RF Rx Instructions: twice a day with glucose check (DME) blood-glucose meter [Accu-Chek Guide Glucose Meter] Misc See Rx Instructions .Route Qty: 1 0RF Rx Instructions: twice a day with glucose check (DME) Accu-Chek Guide test strips Strip See Rx Instructions .Route Qty: 100 0RF Rx Instructions: twice a day with glucose check hydrocodone-acetaminophen 5-325 mg Tablet 1 tab PO Q6H PRN (Reason: severe pain (scale score 7-10)) Qty: 12 0RF insulin glargine [Lantus Solostar U-100 Insulin] 100 unit/mL (3 mL) Insulin Pen 25 unit SQ HS Qty: 15 0RF lisinopril 10 mg Tablet 10 mg PO DAILY Qty: 30 0RF atorvastatin [Lipitor] 20 mg tablet 20 mg PO HS Qty: 30 0RF Continued multivitamin Tablet 1 tab PO DAILY vitamin B complex Tablet Extended Release 1 tab PO DAILY ashwagandha extract 120 mg Capsule 120 mg PO DAILY Beet Root-Magnesium 150 mg Tablet 1 tab PO DAILY Problem Reconciliation Problems Reviewed?: Yes Patient Discharge Instructions ACTIVITY: Limited activity DIET: continue same diet and diabetic diet Patient Instructions: Calorie-Counting Diet, Carbohydrate-Counting Diet, DI for Diabetic Foot Ulcer, DI for Surgical Site Infection, DI for Incision and Drainage, Using Nutrition Labels: Carbohydrate Diet, Stop Light Infection Print Language: Ugandan Providers Primary Care Provider: Vish Barakat Admit Provider: Max Valle Attending Provider: Max Valle
[2025-02-27] MEDS: LISINOPRIL 10MG TABLET 10 MG PO (08:33)
--- NOTE | 2025-02-27 11:10 | EXP.PHA.CONS ---
Pharmacy Consult Date: 02/27/25 Time: 11:10 Referring provider: DR. GARCIA Reason for Consult:: VANCOMYCIN LEVEL AND DOSE CHANGE Allergies Allergy/AdvReac Type Severity Reaction Status Date / Time No Known Allergies Allergy Verified 02/25/25 09:47 Home Medications ?Medication ?Instructions ?Recorded ?Confirmed ?Type ashwagandha extract 120 mg capsule 120 mg PO DAILY 02/25/25 02/25/25 History magnesium oxide 150 mg-herbal 1 tab PO DAILY 02/25/25 02/25/25 History drugs tablet (Beet Root-Magnesium) multivitamin 1 tab PO DAILY 02/25/25 02/25/25 History vitamin B complex 1 tab PO DAILY 02/25/25 02/25/25 History doxycycline hyclate 100 mg capsule 100 mg PO BID 12 days #24 caps 02/26/25 Rx levofloxacin 750 mg tablet 750 mg PO DAILY #12 tabs 02/26/25 Rx New Prescriptions to Start Prescriptions: doxycycline hyclate Ciaran Garcia levofloxacin Ciaran Garcia Height: 1.96 m Weight: 105.506 kg Laboratory Results:: Laboratory Results - last 24 hr 02/26/25 11:36: POC Glucose 263 H 02/26/25 16:39: POC Glucose 278 H 02/26/25 19:57: POC Glucose 203 H 02/26/25 22:08: Vancomycin Trough 8.3 02/27/25 05:23: POC Glucose 176 H Medical History: Medical History (Updated 02/25/25 @ 14:53 by Anuradha Hinkle APRN) Implantable intrathecal infusion pump present Diabetes mellitus, type 2 Anxiety HLD (hyperlipidemia) Hypertension Assessment and Plan Assessment and plan all Dx Assessment and Plan for all problems:: PATIENT'S VANCOMYCIN TROUGH LEVEL WAS 8.3 MCG/ML OVERNIGHT. RECOMMEND PATIENT CHANGE DOSE TO VANCOMYCIN 2250 MG Q12 AT THIS TIME.
[2025-02-27 12:21] LABS: POC Glucose,Bedside 293 gm/dL (70-110)
[2025-02-27] MEDS: VANCOMYCIN HCL 2,250 MG in 0.9 % SODIUM CHLORIDE 250 ML 125 MG IV (14:01)
[2025-02-27 14:36] LABS: Hematocrit 39.7 % (42.0-52.0); Hemoglobin 13.6 g/dL (14.1-18.0); Immature Granulocytes % 0.9 %; Mean Corpuscular HGB Conc 34.3 g/dL (31.8-35.4); Mean Corpuscular Hemoglobin 30.0 pg (27.0-31.2); Mean Corpuscular Volume 87.6 fl (80-94); Nucleated Red Blood Cells % 0 %; Platelet Count 269 K/mm3 (142-424); Red Blood Count 4.53 M/mm3 (4.60-6.20); Red Cell Distribution Width-SD 38.4 fL; White Blood Count 9.7 K/mm3 (4.8-10.8)
[2025-02-27 14:51] LABS: Alanine Aminotransferase 25 U/L (12-78); Albumin Level 3.5 g/dl (3.5-5.0); Albumin/Globulin Ratio 1.1 (1.1-1.8); Alkaline Phosphatase 97 U/L (38-126); Anion Gap 9.8 mEq/L (5-15); Aspartate Amino Transferase 27 U/L (17-59); Bilirubin,Total 0.5 mg/dl (0.2-1.3); Blood Urea Nitrogen 9 mg/dl (9-20); Calcium 9.0 mg/dl (8.4-10.2); Carbon Dioxide 29 mmol/L (22.0-30.0); Chloride 98 mmol/L (98-107); Creatinine Clearance Estimated 184 mL/min (50-200); Creatinine,Serum 0.70 mg/dl (0.66-1.25); Estimated Glomerular Filt Rate 118 ml/min (>60); GFR (African American) 143 ML/MIN (>60); Globulin 3.2 g/dL (1.3-3.2); Glucose 254 mg/dl (74-100); Potassium 3.8 mmoL/L (3.5-5.1); Sodium 133 mmol/L (136-145); Total Protein,Serum 6.7 g/dl (6.3-8.2)
[2025-02-27 14:56] LABS: C-Reactive Protein 52.9 mg/L (0-4)
[2025-02-27] MEDS: HYDROCODONE/APAP 5/325 MG TABLET 1 TAB PO (15:35)
--- NOTE | 2025-02-27 16:17 | PC.NURSE ---
went to change dsg (rt foot) prior to discharge and top of pts foot was red, slightly swollen and warm to touch, non-blanchable. per the picture of on the pts phone, the foot did not look like that yesterday. notified kota who notified dr crockett. VO for cbc, cmp, esr, and crp stat. labs resulted, kota came to bs to talk with pt. pt is to go to [facility] saturday morning for a dsg change. pt has been compliant and voiced understanding.
--- NOTE | 2025-03-01 10:55 | SW/DCPLANNER ---
Spoke with patient on the phone. Patient stated that he is doing well. Patient stated that he is aware of his upcoming appointments. Patient stated that he was able to pick his new medicine up from Clinic pharmacy. Patient stated that he has no concerns or questions at this time. Amber Nixon
== END 2025-02-27 16:00 | disposition home health service (06) | DRG 853 ==
LOC: ER 11:57 → 2ND 12:25
PROVIDERS: Internal Medicine Adolescent Medicine; Podiatrist; Admitting Provider Student in an Organized Health Care Education/Training Program; Emergency Provider Emergency Medicine; PCP Internal Medicine Adolescent Medicine; Visit Provider Student in an Organized Health Care Education/Training Program
PROC: 0Y6P0Z0 Detachment at Right 1st Toe, Complete, Open Approach (ICD-10-PCS; principal; 2025-02-25 14:45)
DX: A41.9 Sepsis, unspecified organism (principal); A48.0 Gas gangrene; E11.52 Type 2 diabetes mellitus with diabetic peripheral angiopathy with gangrene; L03.115 Cellulitis of right lower limb; E11.65 Type 2 diabetes mellitus with hyperglycemia; Z16.29 Resistance to other single specified antibiotic; Z16.39 Resistance to other specified antimicrobial drug; B95.4 Other streptococcus as the cause of diseases classified elsewhere; I10 Essential (primary) hypertension; M51.369 Other intervertebral disc degeneration, lumbar region without mention of lumbar back pain or lower extremity pain; E11.621 Type 2 diabetes mellitus with foot ulcer; L97.513 Non-pressure chronic ulcer of other part of right foot with necrosis of muscle; E11.628 Type 2 diabetes mellitus with other skin complications; G89.4 Chronic pain syndrome; Z97.8 Presence of other specified devices
CPT/HCPCS: 36415; 73630; 73702; 80053; 80061; 80202; 82803; 82962; 83036; 83605; 83735; 85025; 85651; 86140; 86803; 87040; 87070; 87077; 87186; 87205; 87389; 88304; 90715; 93005; 97162; 99285; J0330; J0665; J0736; J1580; J1650; J2003; J2543; J2704; J3010; J3373; J7050; J7120; Q9967

== ENCOUNTER 2025-03-11 10:15 | Outpatient (CLI) | payer OTHER, SELFPAY ==
--- OUTSIDE RECORDS SUMMARY | 2025-03-12 02:51 | XMS_ITS | Clinical Summary ---
Author Organization Healthcare Address [address] [place] [address] Care Team Providers Care Outcomes Manager Name Role Phone Vish Barakat MD Primary Care Provider + [phone] Family History Medical History Relation Name Comments [...] of Treatment Not on file Care Teams Outcomes Manager Relationship Specialty Start Date End Date Vish Barakat MD [address] [place] [id number] PCP - General 10/14/20
--- OUTSIDE RECORDS SUMMARY | 2025-03-12 02:51 | XMS_ITS | Clinical Summary ---
Author Organization [facility] Address [address] [place] [address] Care Team Providers Care Adon Name Role Phone Provider, No Known Primary [...] of 2) 2022 INFLUENZA VACCINE 01/01/2025 Insurance [employer] Care Teams Adon Relationship Specialty Start Date End Date Provider, [place] [address] PCP - General 07/23/18
== END 2025-03-11 23:59 ==
LOC: LAB.DROPOF 03-12 02:50
PROVIDERS: PCP Podiatrist; Visit Provider Podiatrist
DX: E11.9 Type 2 diabetes mellitus without complications (principal); Z98.890 Other specified postprocedural states
CPT/HCPCS: 87070; 87205

== ENCOUNTER 2025-03-18 09:12 | Outpatient (CLI) | payer OTHER, SELFPAY ==
--- OUTSIDE RECORDS SUMMARY | 2024-07-17 09:00 | XMS_ITS ---
Author Organization [facility] Address [address] [place] [address] Care Team Providers Care Clinical Microbiologist Name Role Phone Reyes Landers II Unavailable [phone] Oliva, Ciaran Unavailable [phone] REASON FOR VISIT pump refill Encounters Encounter Location Date Provider Diagnosis [facility] [address] [place] [address] 07/17/2024 Reyes Landers Plan Of Treatment Next Appt Details Provider Name:Reyes faustin, 06/18/2025 01:00:00 PM, [address], [address], [place], [address], Provider Name:Reyes faustin, 06/18/2025 03:30:00 PM, [address], [address], [place], [address], Progress Notes * Jeffery RONQUILLO ADOB:[birth year] (54 yo M)Acc No.[id number]:07/17/2024 Patient: Larry ETTA Jeffery Gaytan Provider: Mike Landers II, M.D. :1970 A ge:54 Y S ex:Male Date:07/17/2024 Address:[address], [place] Subjective: * Chief Complaints: * 1 . Pump refill. * Medical History: Objective: * Vitals: Assessment: Plan: * Treatment: * * Electronic signature of Can Landers II, M.D. on 03/18/2025 at 08:22 AM CDT Sign off status: Pending * Provider: Mike Landers II, M.D. Date: 0 07/17/2024 Generated for Zohra poole/Angelica/Kristopher on: 1 08:22 AM CDT
--- OUTSIDE RECORDS SUMMARY | 2024-11-06 09:30 | XMS_ITS ---
Author Organization [facility] ex Address [address] [place] [address] Care Team Providers Care Tubular Riveter Name Role Phone Reyes Landers II Unavailable Oliva, Ciaran Unavailable [phone] REASON FOR VISIT pump refill Encounters Encounter Location Date Provider Diagnosis [facility] [address] [place] [address] 11/06/2024 Reyes Landers Plan Of Treatment Next Appt Details Provider Name:Reyes faustin, 06/18/2025 01:00:00 PM, [address], [address], [place], [address], Provider Name:Reyes faustin, 06/18/2025 03:30:00 PM, [address], [address], [place], [address], Progress Notes * Jeffery RONQUILLO ADOB:[birth year] (54 yo M)Acc No.[id number]:11/06/2024 Patient: Larry ETTA Jeffery Gaytan Provider: Mike [...] 11/06/2024 Generated for Zohra poole/Angelica/Kristopher on: 1 08:22 AM CDT
--- OUTSIDE RECORDS SUMMARY | 2025-02-19 11:30 | XMS_ITS ---
Author Organization [facility] ex Address [address] [place] [address] Care Team Providers Care Bridge Worker Name Role Phone Reyes Landers II Unavailable Oliva, Ciaran Unavailable [phone] REASON FOR VISIT Pump Follow Up Encounters Encounter Location Date Provider Diagnosis [facility] [address] [place] [address] 02/19/2025 Reyes Landers Plan Of Treatment Next Appt Details Provider Name:Reyes faustin, 06/18/2025 01:00:00 PM, [address], [address], [place], [address], Provider Name:Reyes faustin, 06/18/2025 03:30:00 PM, [address], [address], [place], [address], Progress Notes * Jeffery RONQUILLO ADOB:[birth year] (54 yo M)Acc No.[id number]:02/19/2025 FollowUP Patient: Larry ETTA Jeffery Gaytan Provider: [...] 02/19/2025 Generated for Zohra poole/Angelica/Kristopher on: 1 08:22 AM CDT
--- OUTSIDE RECORDS SUMMARY | 2025-02-24 09:30 | XMS_ITS ---
Author Organization [facility] ex Address [address] [place] [address] Care Team Providers Care Canine Enforcement Officer Name Role Phone Reyes Landers II Unavailable Oliva, Ciaran Unavailable [phone] REASON FOR VISIT pump refill Encounters Encounter Location Date Provider Diagnosis [facility] [address] [place] [address] 02/24/2025 Reyes Landers Plan Of Treatment Next Appt Details Provider Name:Reyes faustin, 06/18/2025 01:00:00 PM, [address], [address], [place], [address], Provider Name:Reyes faustin, 06/18/2025 03:30:00 PM, [address], [address], [place], [address], Progress Notes * Jeffery RONQUILLO ADOB:[birth year] (54 yo M)Acc No.[id number]:02/24/2025 Patient: Larry ETTA Jeffery Gaytan Provider: Mike [...] 02/24/2025 Generated for Zohra poole/Angelica/Kristopher on: 1 08:22 AM CDT
--- OUTSIDE RECORDS SUMMARY | 2025-03-18 09:22 | XMS_ITS | Patient Health Record ---
Author Organization [facility] Address [address] [place] [address] Care Team Providers Care High School Guidance Counselor Name Role Phone Reyes Landers II Unavailable [phone] Oliva, Ciaran Unavailable [phone] Allergies No Known Allergies Reason For Referral [...] Diagnosis [facility] [address] [place] [address] 03/25/2024 Reyes Landers [facility] [address] [place] [address] 07/17/2024 Reyes Landers [facility] [address] [place] [address] 11/06/2024 Reyes Landers [facility] [address] [place] [address] 02/24/2025 Reyes Landers [facility] [address] [place] [address] 03/25/2024 Reyes Landers Other [facility] (current) drug therapy Z79.899 [facility] [address] [facility] [address] [place] [address] 11/06/2024 Reyes Landers Other terminal operations manager (current) drug therapy Z79.899 Assessments Encounter Date Diagnosis (ICD Code) Assessment Notes Treatment Notes Treatment Clinical Notes Section Notes 11/06/2024 Other penitentiary (current) drug therapy (ICD-10 - Z79.899) 03/25/2024 [...] of 0.6 mg/day of morphine. 03/25/2024 Other penitentiary (current) drug therapy (ICD-10 - Z79.899) 03/25/2024 [...] him on a more remote basis with [facility] doing the pain pump refills unless changes need to be made. Plan Of Treatment Pending Test Test Name Order Date Urine Test ANALYZER 03/25/2024 Urine Test ANALYZER 11/06/2024 Next Appt Details Provider Name:Reyes Carr roxie, 06/18/2025 01:00:00 PM, [address], [address], [place], [address], Provider Name:Reyes Carr roxie, 06/18/2025 03:30:00 PM, [address], [address], [place], [address], Insurance Providers Payer Name Payer Address Payer Phone Subscriber Number Group Number Insured Name Patient Relationship to Insured Coverage Start Date Coverage End Date [id number] [address] [address] [place] [address] [id number] Jeffery Ronquillo Self - patient is the insured 4 Medical (General) History Medical History History ICD Code High cholesterol Diabetes Depression Anxiety Surgical History Surgery Date(Month/Year) surgery on pelvis/ [facility] 2017 surgery on LT arm/ [facility] 2017 ITP placement/ Dr. Oconnor Hospitalization History Reason Date(Month/Year) Stayed at after surgeries 2017
--- OUTSIDE RECORDS SUMMARY | 2025-03-18 09:22 | XMS_ITS | Clinical Summary ---
Author Organization [facility] Address [address] [place] [address] Care Team Providers Care Assembly Manager Name Role Phone Provider, No Known Primary [...] of 2) 2022 INFLUENZA VACCINE 01/01/2025 Insurance [employer] Care Teams Assembly Manager Relationship Specialty Start Date End Date Provider, [place] [address] PCP - General 07/23/18
--- OUTSIDE RECORDS SUMMARY | 2025-03-18 09:22 | XMS_ITS | Clinical Summary ---
Author Organization Healthcare Address [address] [place] [address] Care Team Providers Care Sketch Liner Name Role Phone Vish Barakat MD Primary Care Provider + [phone] Family History Medical History Relation Name Comments [...] of Treatment Not on file Care Teams Sketch Liner Relationship Specialty Start Date End Date Vish Barakat MD [address] [place] [address] PCP - General 10/14/20
--- NOTE | 2025-03-18 09:25 | XR_ITS ---
FINAL REPORT CLINICAL HISTORY: post-op evaluation, cellulitis COMPARISON: 02/25/2025 FINDINGS: AP, oblique and lateral views of the right foot were obtained. There has been amputation of the first toe at the first MTP joint. There is a subchondral lucency along the head of the first metatarsal, which may be slightly more prominent than seen on recent films. Osteomyelitis is not excluded, consider MRI for further evaluation. Dorsal soft tissue edema is noted. IMPRESSION: 1. 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 2. Subchondral lucency along the head of the first metatarsal, perhaps slightly more prominent than seen on recent films. Osteomyelitis is not excluded, consider MRI for further evaluation. 3. Dorsal soft tissue edema. Reviewed, Interpreted and Dictated by Zuleika Hernandez MD Transcribed by Vivienne Grimes Authenticated and . [facility]
[2025-03-18 09:40] LABS: Hematocrit 50.1 % (42.0-52.0); Hemoglobin 16.9 g/dL (14.1-18.0); Immature Granulocytes % 1.1 %; Mean Corpuscular HGB Conc 33.7 g/dL (31.8-35.4); Mean Corpuscular Hemoglobin 29.6 pg (27.0-31.2); Mean Corpuscular Volume 87.9 fl (80-94); Nucleated Red Blood Cells % 0 %; Platelet Count 105 K/mm3 (142-424); Red Blood Count 5.70 M/mm3 (4.60-6.20); Red Cell Distribution Width-SD 39.7 fL; White Blood Count 10.7 K/mm3 (4.8-10.8)
[2025-03-18 10:31] LABS: Alanine Aminotransferase 53 U/L (12-78); Albumin Level 4.6 g/dl (3.5-5.0); Albumin/Globulin Ratio 1.4 (1.1-1.8); Alkaline Phosphatase 173 U/L (38-126); Anion Gap 18.0 mEq/L (5-15); Aspartate Amino Transferase 43 U/L (17-59); Bilirubin,Total 0.7 mg/dl (0.2-1.3); Blood Urea Nitrogen 25 mg/dl (9-20); Calcium 9.7 mg/dl (8.4-10.2); Carbon Dioxide 27 mmol/L (22.0-30.0); Chloride 96 mmol/L (98-107); Creatinine,Serum 0.80 mg/dl (0.66-1.25); Estimated Glomerular Filt Rate 102 ml/min (>60); GFR (African American) 123 ML/MIN (>60); Globulin 3.3 g/dL (1.3-3.2); Glucose 211 mg/dl (74-100); Potassium 5.0 mmoL/L (3.5-5.1); Sodium 136 mmol/L (136-145); Total Protein,Serum 7.9 g/dl (6.3-8.2)
[2025-03-18 10:35] LABS: C-Reactive Protein 1.7 mg/L (0-4)
== END 2025-03-18 23:59 | disposition home or self-care (01) ==
PROVIDERS: PCP Internal Medicine; Visit Provider Podiatrist
DX: E11.628 Type 2 diabetes mellitus with other skin complications (principal); L08.9 Local infection of the skin and subcutaneous tissue, unspecified; R60.0 Localized edema; L03.90 Cellulitis, unspecified; R93.6 Abnormal findings on diagnostic imaging of limbs; M79.89 Other specified soft tissue disorders; Z98.890 Other specified postprocedural states
CPT/HCPCS: 36415; 73630; 80053; 85025; 85651; 86140

== ENCOUNTER 2025-04-06 10:46 | Outpatient (CLI) | payer OTHER, SELFPAY ==
--- OUTSIDE RECORDS SUMMARY | 2023-11-13 08:30 | XMS_ITS ---
Author Organization [facility] ex Address [address] [place] [address] Care Team Providers Care Tempering Machine Operator Name Role Phone Reyes Landers II Unavailable [phone] Oliva, Ciaran Unavailable [phone] REASON FOR VISIT Pump Refill Encounters Encounter Location Date Provider Diagnosis [facility] [address] [place] [address] 11/13/2023 Reyes Landers Other usp (current) drug therapy Z79.899 Assessments Encounter Date Diagnosis (ICD Code) Assessment Notes Treatment Notes Treatment Clinical Notes Section Notes 11/13/2023 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 :1970 A ge:53 Y S ex:Male Date:11/13/2023 Address:[address] [place] [address] [place], [id number] * * Electronic signature of Can Landers II, M.D. on 04/06/2025 at 09:57 AM TECHNICAL SALES REPRESENTATIVE Sign off status: Pending * Provider: Mike Landers II, M.D. Date: 0 11/13/2023 Generated for Zohra poole/Angelica/Kristopher on: 1 06/06/2024 09:57 AM TECHNICAL SALES REPRESENTATIVE
--- OUTSIDE RECORDS SUMMARY | 2024-03-25 08:00 | XMS_ITS ---
Author Organization [facility] ex Address [address] [place] [address] Care Team Providers Care Account Service Representative Name Role Phone Reyes Landers II Unavailable Oliva, Ciaran Unavailable [phone] REASON FOR VISIT PUMP REFILL Encounters Encounter Location Date Provider Diagnosis [facility] [address] [place] [address] 03/25/2024 Reyes Landers Plan Of Treatment Next Appt Details Provider Name:Reyes faustin, 06/18/2025 01:00:00 PM, [address], [address], [place], [address], Provider Name:Reyes faustin, 06/18/2025 03:30:00 PM, [address], [address], [place], [address], Progress Notes * Jeffery RONQUILLO ADOB:[birth year] (54 yo M)Acc No.[id number]:03/25/2024 Patient: Larry ETTA Jeffery Lucila Provider: Mike Landers II, M.D. :1970 A ge:53 Y S ex:Male Date:03/25/2024 Address:[address], [place] Subjective: * Chief Complaints: * 1 . PUMP REFILL. * Medical History: Objective: * Vitals: Assessment: Plan: * Treatment: * * Electronic signature of Can Landers II, M.D. on 04/06/2025 at 09:57 AM ELEMENTARY SCHOOL SCIENCE TEACHER Sign off status: Pending * Provider: Mike Landers II, M.D. Date: Generated for Zohra poole/Angelica/Kristopher on: 06/06/2024 09:57 AM ELEMENTARY SCHOOL SCIENCE TEACHER
--- OUTSIDE RECORDS SUMMARY | 2024-07-17 08:00 | XMS_ITS ---
Author Organization [facility] Address [address] [place] [address] Care Team Providers Care Durable Medical Equipment Repairer Name Role Phone Reyes Landers II Unavailable Oliva, Ciaran Unavailable [phone] REASON FOR VISIT pump refill Encounters Encounter Location Date Provider Diagnosis [facility] [address] [place] [address] 07/17/2024 Reyes Landers Plan Of Treatment Next Appt Details Provider Name:Reyes faustin, 06/18/2025 01:00:00 PM, [address], [address], [place], [address], Provider Name:Reyes faustin, 06/18/2025 03:30:00 PM, [address], [address], [place], [address], Progress Notes * Jeffery RONQUILLO ADOB:[birth year] (54 yo M)Acc No.[id number]:07/17/2024 Patient: Larry ETTA Jeffery Gaytan Provider: Mike Landers II, M.D. :1970 A ge:54 Y S ex:Male Date:07/17/2024 Address:[address], [place] Subjective: * Chief Complaints: * 1 . Pump refill. * Medical History: Objective: * Vitals: Assessment: Plan: * Treatment: * * Electronic signature of Can Landers II, M.D. on 04/06/2025 at 09:57 AM OPEN SOAPER TENDER Sign off status: Pending * Provider: Mike Landers II, M.D. Date: 0 07/17/2024 Generated for Zohra poole/Angelica/Kristopher on: 1 06/06/2024 09:57 AM OPEN SOAPER TENDER
--- OUTSIDE RECORDS SUMMARY | 2024-11-06 08:30 | XMS_ITS ---
Author Organization [facility] Address [address] [place] [address] Care Team Providers Care Graffiti Cleaner Name Role Phone Reyes Landers II Unavailable Oliva, Ciaran Unavailable [phone] REASON FOR VISIT pump refill Encounters Encounter Location Date Provider Diagnosis [facility] [address] [place] [address] 11/06/2024 Reyes Landers Plan Of Treatment Next Appt Details Provider Name:Reyes faustin, 06/18/2025 01:00:00 PM, [address], [address], [place], [address], Provider Name:Reyes faustin, 06/18/2025 03:30:00 PM, [address], [address], [place], [address], Progress Notes * Jeffery RONQUILLO ADOB:[birth year] (54 yo M)Acc No.[id number]:11/06/2024 Patient: Larry ETTA Jeffery Gaytan Provider: Mike Landers II, M.D. :1970 A ge:54 Y S ex:Male Date:11/06/2024 Address:[address], [place] Subjective: * Chief Complaints: * 1 . Pump refill. * Medical History: Objective: * Vitals: Assessment: Plan: * Treatment: * * Electronic signature of Can Landers II, M.D. on 04/06/2025 at 09:57 AM BRUSH STAINER Sign off status: Pending * Provider: Mike Landers II, M.D. Date: 0 11/06/2024 Generated for Zohra poole/Angelica/Kristopher on: 1 06/06/2024 09:57 AM BRUSH STAINER
--- OUTSIDE RECORDS SUMMARY | 2025-02-19 10:30 | XMS_ITS ---
Author Organization [facility] ex Address [address] [place] [address] Care Team Providers Care Matrix Bath Attendant Name Role Phone Reyes Landers II Unavailable Oliva, Ciaran Unavailable [phone] REASON FOR VISIT Pump Follow Up Encounters Encounter Location Date Provider Diagnosis [facility] [address] [place] [address] 02/19/2025 Reyes Landers Plan Of Treatment Next Appt Details Provider Name:Reyes faustin, 06/18/2025 01:00:00 PM, [address], [address], [place], [address], Provider Name:Reyes faustin, 06/18/2025 03:30:00 PM, [address], [address], [place], [address], Progress Notes * Jeffery RONQUILLO ADOB:[birth year] (54 yo M)Acc No.[id number]:02/19/2025 FollowUP Patient: Larry ETTA Jeffery Gaytan Provider: Mike Landers II, M.D. :1970 A ge:54 Y S ex:Male Date:02/19/2025 Address:[address], [place] Subjective: * Chief Complaints: * 1 . Pump Follow Up. * Medical History: Objective: * Vitals: Assessment: Plan: * Treatment: * * Electronic signature of Can Landers II, M.D. on 04/06/2025 at 09:57 AM FINANCIAL COACH Sign off status: Pending * Provider: Mike Landers II, M.D. Date: 0 02/19/2025 Generated for Zohra poole/Angelica/Kristopher on: 1 06/06/2024 09:57 AM FINANCIAL COACH
--- OUTSIDE RECORDS SUMMARY | 2025-02-24 08:30 | XMS_ITS ---
Author Organization [facility] ex Address [address] [place] [address] Care Team Providers Care Optical Instrument Repairer Name Role Phone Reyes Landers II Unavailable Oliva, Ciaran Unavailable [phone] REASON FOR VISIT pump refill Encounters Encounter Location Date Provider Diagnosis [facility] [address] [place] [address] 02/24/2025 Reyes Landers Plan Of Treatment Next Appt Details Provider Name:Reyes faustin, 06/18/2025 01:00:00 PM, [address], [address], [place], [address], Provider Name:Reyes faustin, 06/18/2025 03:30:00 PM, [address], [address], [place], [address], Progress Notes * Jeffery RONQUILLO ADOB:[birth year] (54 yo M)Acc No.[id number]:02/24/2025 Patient: Larry ETTA Jeffery Gaytan Provider: Mike Landers II, M.D. :1970 A ge:54 Y S ex:Male Date:02/24/2025 Address:[address], [place] Subjective: * Chief Complaints: * 1 . Pump refill. * Medical History: Objective: * Vitals: Assessment: Plan: * Treatment: * * Electronic signature of Can Landers II, M.D. on 04/06/2025 at 09:57 AM RHEUMATOLOGIST Sign off status: Pending * Provider: Mike Landers II, M.D. Date: 0 02/24/2025 Generated for Zohra poole/Angelica/Kristopher on: 1 06/06/2024 09:57 AM RHEUMATOLOGIST
--- OUTSIDE RECORDS SUMMARY | 2025-04-06 10:57 | XMS_ITS | Data Portability ---
Author Organization [facility] Address [address] [place] [address] Assessment No assessment recorded. Plan of Treatment Reminders Order Date Submit Date Provider Last Modified By Organization Details Last Modified Time Details Appointments None record ed. Lab None record ed. Referral None record ed. Procedures None record ed. Surgeries None record ed. Imaging None record ed. Medication Orders None record ed. Patient TargetsNo targets recorded. Patient InstructionsNo instructions recorded. Reason for Referral None Reported. Procedures Surgical History Date Name Laterality Status Provider Name and Address Organization Details Recorded Time 02/16/2020 Pump Refill completed Hamlet Oconnor MD [address] [facility] [address], [place], [address], [place] [facility] 02/16/2020 14:58:46 Imaging Results None recorded. Procedure Notes None recorded. Medical Equipment None Reported. Medications Name Sig Start Date Stop Date Status Note LastModified by Organization Details LastModified Time atorvastatin 80 mg tablet active Not Available Not Available Not Available glipizide 10 mg tablet active Not Available Not Available No t Available citalopram 20 mg tablet active Not Available Not Available No t Available metformin 1,000 mg tablet active Not Available Not Available Not Available lisinopril 10 mg tablet active Not Available Not Available No t Available fenofibrate 54 mg tablet active Not Available Not Available No t Available Vitals None Recorded Social History None recorded. Functional Status None recorded. Mental Status None recorded. Family History Nothing Reported. Medical History No medical history recorded. Past Encounters Encounter ID Performer Location Encounter Start Date Encounter Closed Date Diagnosis/Indication Diagnosis SNOMED-CT Code Diagnosis ICD10 Code Diagnosis IMO Codes Diagnosis Note [id number] Hamlet Oconnor MD [facility] [address] [facility] [address] [place] [address] 02/16/2020 13:58:55 02/16/2020 14:57:28 Chronic pain syndrome 901593374 G89.4 Health Concerns Section Related Observation LastModified by Organization Detai ls LastModified Time None Recorded Concern Status LastModified by Organization Details LastModified Time None Recorded Advance Directives Directive None Recorded Payers Insurance Date Sequence Insurance Name Policy Number Policy Zurita Covered Member ID [place] Member ID Guarantor Name 08/08/[address] [facility] (MEDICAID REPLACEMENT - HMO) [id number] Jeffery Ronquillo [id number] Jeffery Ronquillo 08/08/2020 1 [facility] (MEDICAID HMO) Jeffery Ronquillo [id number] Jeffery Ronquillo
--- OUTSIDE RECORDS SUMMARY | 2025-04-06 10:57 | XMS_ITS | Clinical Summary ---
Author Organization Healthcare Address [address] [place] [address] Care Team Providers Care School Crossing Guard Supervisor Name Role Phone Vish Barakat MD Primary Care Provider + [phone] Family History Medical History Relation Name Comments [...] of Treatment Not on file Care Teams School Crossing Guard Supervisor Relationship Specialty Start Date End Date Vish Barakat MD [address] [place] [address] PCP - General 10/14/20
--- OUTSIDE RECORDS SUMMARY | 2025-04-06 10:58 | XMS_ITS | Clinical Summary ---
[facility] Address [address] [place] [address] Care Team Providers Care Medical Sales Specialist Name Role Phone Provider, No Known Primary [...] of 2) 2022 INFLUENZA VACCINE 01/01/2025 Insurance [employer] Care Teams Medical Sales Specialist Relationship Specialty Start Date End Date Provider, [place] [address] PCP - General 07/23/18
--- OUTSIDE RECORDS SUMMARY | 2025-04-06 10:58 | XMS_ITS | Patient Health Record ---
Author Organization [facility] Address [address] [place] [address] Care Team Providers Care Assistant Professor Of Education Name Role Phone Reyes Landers II Unavailable Oliva, Ciaran Unavailable [phone] Allergies No Known Allergies Reason For Referral [...] Answer Notes Are you a: former smoker Encounters Encounter Location Date Provider Diagnosis [facility] [address] [place] [address] 07/17/2024 Reyes Landers [facility] [address] [place] [address] 11/06/2024 Reyes Landers [facility] [address] [place] [address] 02/24/2025 Reyes Hodgeschastity [facility] [address] [place] [address] 11/06/2024 Reyes Landers Other filler leaf cutter long (current) drug therapy Z79.899 Assessments Encounter Date Diagnosis (ICD Code) Assessment Notes Treatment Notes Treatment Clinical Notes Section Notes 11/06/2024 Other halfway (current) drug therapy (ICD-10 - Z79.899) 03/25/2024 [...] ANALYZER 11/06/2024 Next Appt Details Provider Name:Reyes faustin, 06/18/2025 01:00:00 PM, [address], [address], [place], [address], Provider Name:Reyes faustin, 06/18/2025 03:30:00 PM, [address], [address], [place], [address], Insurance Providers Payer Name Payer Address Payer Phone Subscriber Number Group Number Insured Name Patient Relationship to Insured Coverage Start Date Coverage End Date R [id number] [address] [address] [place] [address]33 [phone] [id number] Jeffery Ronquillo Self - patient is the insured 4 Medical (General) History Medical History History ICD Code High cholesterol Diabetes Depression Anxiety Surgical History Surgery Date(Month/Year) ITP placement/ Dr. Oconnor surgery on LT arm/ [facility] 2016 surgery on pelvis/ [facility] 2016 Hospitalization History Reason Date(Month/Year) Stayed at after surgeries 2016
--- NOTE | 2025-04-06 11:00 | US_ITS ---
FINAL REPORT CLINICAL HISTORY: Evaluation of Symptoms involving Circulatory Syste FINDINGS: ANKLE-BRACHIAL PRESSURE INDICES Pressure indices are as follows: RIGHT LOWER EXTREMITY: Ankle-brachial pressure index: 0.98 Comments: Borderline LEFT LOWER EXTREMITY: Ankle-brachial pressure index: 0.94 Comments: Borderline IMPRESSION: Borderline obstructive peripheral vascular disease of the bilateral lower extremities Reviewed, Interpreted and Dictated by Zuleika Hernandez MD Transcribed by Daria Ruvalcaba Authenticated and [facility]
== END 2025-04-06 23:59 | disposition home or self-care (01) ==
LOC: RT 10:47
PROVIDERS: PCP Internal Medicine; Visit Provider Podiatrist
DX: I70.203 Unspecified atherosclerosis of native arteries of extremities, bilateral legs (principal); I97.89 Other postprocedural complications and disorders of the circulatory system, not elsewhere classified; R09.89 Other specified symptoms and signs involving the circulatory and respiratory systems
CPT/HCPCS: 93923

== ENCOUNTER 2025-04-07 09:36 | Outpatient (CLI) | payer OTHER, SELFPAY ==
--- OUTSIDE RECORDS SUMMARY | 2023-11-13 08:30 | XMS_ITS ---
Author Organization [facility] Address [address] [place] [address] Care Team Providers Care Oracle Soa Architect Name Role Phone Reyes Landers II Unavailable Oliva, Ciaran Unavailable [phone] REASON FOR VISIT Pump Refill Encounters Encounter Location Date Provider Diagnosis [facility] [address] [place] [address] 11/13/2023 Reyes Landers Other residential (current) drug therapy Z79.899 Assessments Encounter Date Diagnosis (ICD Code) Assessment Notes Treatment Notes Treatment Clinical Notes Section Notes 11/13/2023 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 :1970 A ge:53 Y S ex:Male Date:11/13/2023 Address:[address] [place] [address] [place], [id number] * * Electronic signature of Can Landers II, M.D. on 04/09/2025 at 08:40 AM [employer] Sign off status: Pending * Provider: Mike Landers II, M.D. Date: 0 11/13/2023 Generated for Zohra poole/Angelica/Kristopher on: 1 06/09/2024 08:40 AM SPORTS INTERN
--- OUTSIDE RECORDS SUMMARY | 2024-03-25 08:00 | XMS_ITS ---
Author Organization [facility] Address [address] [place] [address] Care Team Providers Care Bandoleer Packer Name Role Phone Reyes Landers II Unavailable [phone] Oliva, Ciaran Unavailable [phone] REASON FOR VISIT PUMP REFILL Encounters Encounter Location Date Provider Diagnosis [facility] [address] [place] [address] 03/25/2024 Reyes Landers Plan Of Treatment Next Appt Details Provider Name:Reyes faustin, 06/18/2025 01:00:00 PM, [address], [address], [place], [address], Provider Name:Reyes faustin, 06/18/2025 03:30:00 PM, [address], [address], [place], [address], Progress Notes * Jeffery RONQUILLO ADOB:[birth year] (54 yo M)Acc No.[id number]:03/25/2024 Patient: Larry ETTA Jeffery Lucila Provider: Mike Landers II, M.D. :1970 A ge:53 Y S ex:Male Date:03/25/2024 Address:[address], [place] Subjective: * Chief Complaints: * 1 . PUMP REFILL. * Medical History: Objective: * Vitals: Assessment: Plan: * Treatment: * * Electronic signature of Can Landers II, M.D. on 04/09/2025 at 08:41 AM WIRE BOUND BOX MACHINE OPERATOR Sign off status: Pending * Provider: Mike Landers II, M.D. Date: Generated for Zohra poole/Angelica/Kristopher on: 06/09/2024 08:41 AM WIRE BOUND BOX MACHINE OPERATOR
--- OUTSIDE RECORDS SUMMARY | 2024-07-17 08:00 | XMS_ITS ---
Author Organization [facility] Address [address] [place] [address] Care Team Providers Care Fish Processor Name Role Phone Reyes Landers II Unavailable Oliva, Ciaran Unavailable [phone] REASON FOR VISIT pump refill Encounters Encounter Location Date Provider Diagnosis [facility] [address] [place] [address] 07/17/2024 Reyes Landers Plan Of Treatment Next Appt Details Provider Name:Reyes faustin, 06/18/2025 01:00:00 PM, [address], [address], [place], [address], Provider Name:Reyes faustin, 06/18/2025 03:30:00 PM, [address], [address], [place], [address], Progress Notes * Jeffery RONQUILLO ADOB:[birth year] (54 yo M)Acc No.[id number]:07/17/2024 Patient: Larry ETTA Jeffery Gaytan Provider: Mike Landers II, M.D. :1970 A ge:54 Y S ex:Male Date:07/17/2024 Address:[address], [place] Subjective: * Chief Complaints: * 1 . Pump refill. * Medical History: Objective: * Vitals: Assessment: Plan: * Treatment: * * Electronic signature of Can Landers II, M.D. on 04/09/2025 at 08:40 AM HOUSE WIRER Sign off status: Pending * Provider: Mike Landers II, M.D. Date: 0 07/17/2024 Generated for Zohra poole/Angelica/Kristopher on: 1 06/09/2024 08:40 AM HOUSE WIRER
--- OUTSIDE RECORDS SUMMARY | 2024-11-06 08:30 | XMS_ITS ---
Author Organization [facility] Address [address] [place] [address] Care Team Providers Care Operator Automated Process Name Role Phone Reyes Landers II Unavailable Oliva, Ciaran Unavailable [phone] REASON FOR VISIT pump refill Encounters Encounter Location Date Provider Diagnosis [facility] [address] [place] [address] 11/06/2024 Reyes Landers Plan Of Treatment Next Appt Details Provider Name:Reyes faustin, 06/18/2025 01:00:00 PM, [address], [address], [place], [address], Provider Name:Reyes faustin, 06/18/2025 03:30:00 PM, [address], [address], [place], [address], Progress Notes * Jeffery RONQUILLO ADOB:[birth year] (54 yo M)Acc No.[id number]:11/06/2024 Patient: Larry ETTA Jeffery Gaytan Provider: Mike Landers II, M.D. :1970 A ge:54 Y S ex:Male Date:11/06/2024 Address:[address], [place] Subjective: * Chief Complaints: * 1 . Pump refill. * Medical History: Objective: * Vitals: Assessment: Plan: * Treatment: * * Electronic signature of Can Landers II, M.D. on 04/09/2025 at 08:41 AM PROCEDURE MANAGER Sign off status: Pending * Provider: Mike Landers II, M.D. Date: 0 11/06/2024 Generated for Zohra poole/Angelica/Kristopher on: 1 06/09/2024 08:41 AM PROCEDURE MANAGER
--- OUTSIDE RECORDS SUMMARY | 2025-02-19 10:30 | XMS_ITS ---
Author Organization [facility] ex Address [address] [place] [address] Care Team Providers Care Bridge Toll Collector Name Role Phone Reyes Landers II Unavailable Oliva, Ciaran Unavailable [phone] REASON FOR VISIT Pump Follow Up Encounters Encounter Location Date Provider Diagnosis [facility] [address] [place] [address] 02/19/2025 Reyes Landers Plan Of Treatment Next Appt Details Provider Name:Reyes faustin, 06/18/2025 01:00:00 PM, [address], [address], [place], [address], Provider Name:Reyes faustin, 06/18/2025 03:30:00 PM, [address], [address], [place], [address], Progress Notes * Jeffery RONQUILLO ADOB:[birth year] (54 yo M)Acc No.[id number]:02/19/2025 FollowUP Patient: Larry ETTA Jeffery Gaytan Provider: Mike Landers II, M.D. :1970 A ge:54 Y S ex:Male Date:02/19/2025 Address:[address], [place] Subjective: * Chief Complaints: * 1 . Pump Follow Up. * Medical History: Objective: * Vitals: Assessment: Plan: * Treatment: * * Electronic signature of Can Landers II, M.D. on 04/09/2025 at 08:40 AM LOCATOR Sign off status: Pending * Provider: Mike Landers II, M.D. Date: 0 02/19/2025 Generated for Zohra poole/Angelica/Kristopher on: 1 06/09/2024 08:40 AM LOCATOR
--- OUTSIDE RECORDS SUMMARY | 2025-02-24 08:30 | XMS_ITS ---
Author Organization [facility] ex Address [address] [place] [address] Care Team Providers Care Diamond Die Maker Name Role Phone Reyes Landers II Unavailable [phone] Oliva, Ciaran Unavailable [phone] REASON FOR VISIT pump refill Encounters Encounter Location Date Provider Diagnosis [facility] [address] [place] [address] 02/24/2025 Reyes Landers Plan Of Treatment Next Appt Details Provider Name:Reyes faustin, 06/18/2025 01:00:00 PM, [address], [address], [place], [address], Provider Name:Reyes faustin, 06/18/2025 03:30:00 PM, [address], [address], [place], [address], Progress Notes * Jeffery RONQUILLO ADOB:[birth year] (54 yo M)Acc No.[id number]:02/24/2025 Patient: Larry ETTA Jeffery Gaytan Provider: Mike Landers II, M.D. :1970 A ge:54 Y S ex:Male Date:02/24/2025 Address:[address], [place] Subjective: * Chief Complaints: * 1 . Pump refill. * Medical History: Objective: * Vitals: Assessment: Plan: * Treatment: * * Electronic signature of Can Landers II, M.D. on 04/09/2025 at 08:40 AM BUTTERMAKER HELPER Sign off status: Pending * Provider: Mike Landers II, M.D. Date: 0 02/24/2025 Generated for Zohra poole/Angelica/Kristopher on: 1 06/09/2024 08:40 AM BUTTERMAKER HELPER
--- OUTSIDE RECORDS SUMMARY | 2025-04-09 09:41 | XMS_ITS | Patient Health Record ---
Author Organization [facility] Address [address] [place] [address] Care Team Providers Care Dairy Feed Mixing Operator Name Role Phone Reyes Landers II Unavailable [phone] Oliva, Ciaran Unavailable [phone] Allergies No Known Allergies Reason For Referral [...] Diagnosis [facility] [address] [place] [address] 07/17/2024 Reyes Landers [facility] [address] [place] [address] 11/06/2024 Reyes Landers [facility] [address] [place] [address] 02/24/2025 Reyes Landers [facility] [address] [place] [address] 11/06/2024 Reyes Landers Other 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 (current) drug therapy Z79.899 Assessments Encounter Date Diagnosis (ICD Code) Assessment Notes Treatment Notes Treatment Clinical Notes Section Notes 11/06/2024 Other [facility] (current) drug therapy (ICD-10 - Z79.899) 03/25/2024 [...] Name:Reyes faustin, 06/18/2025 01:00:00 PM, [address], [address], [place], [address], Provider Name:Reyes faustin, 06/18/2025 03:30:00 PM, [address], [address], [place], [address], Insurance Providers Payer Name Payer Address Payer Phone Subscriber Number Group Number Insured Name Patient Relationship to Insured Coverage Start Date Coverage End Date R 18971 [address] [address] [place] [id number] Jeffery Ronquillo Self - patient is the insured 4 Medical (General) History Medical History History ICD Code High cholesterol Diabetes Depression Anxiety Surgical History Surgery Date(Month/Year) surgery on pelvis/ [facility] 2016 surgery on LT arm/ [facility] 2016 ITP placement/ Dr. Oconnor Hospitalization History Reason Date(Month/Year) Stayed at after surgeries 2016
--- OUTSIDE RECORDS SUMMARY | 2025-04-09 09:41 | XMS_ITS | Clinical Summary ---
Author Organization Healthcare Address [address] [place] [address] Care Team Providers Care Writer Name Role Phone Vish Barakat MD Primary Care Provider + [phone] Family History Medical History Relation Name Comments [...] of Treatment Not on file Care Teams Writer Relationship Specialty Start Date End Date Vish Barakat MD [address] [place] [address] PCP - General 10/14/20
--- OUTSIDE RECORDS SUMMARY | 2025-04-09 09:41 | XMS_ITS | Data Portability ---
Author Organization [facility] Address [address] [place] [address] Assessment No assessment recorded. Plan of Treatment [...] Refill completed Hamlet Oconnor MD [address] [facility] [address], [place], [address], [place] [facility] 02/16/2020 14:58:46 [...] Codes Diagnosis Note 38 Hamlet Oconnor MD [facility] [address] [facility] [address] [place] [address] 02/16/2020 13:58:55 02/16/2020 14:57:28 Chronic pain syndrome [id number] G89.4 Health Concerns Section Related Observation LastModified by Organization Detai ls LastModified Time None Recorded Concern Status LastModified by Organization Details LastModified Time None Recorded Advance Directives Directive None Recorded Payers Insurance Date Sequence Insurance Name Policy Number Policy Zurita Covered Member ID Zurita Member ID Guarantor Name 08/08/2020 1 [employer] [facility] (MEDICAID REPLACEMENT - HMO) [id number] Jeffery Ronquillo [id number] Jeffery Ronquillo 08/08/2020 1 [facility] (MEDICAID HMO) Jeffery Ronquillo [id number] Jeffery Ronquillo
--- OUTSIDE RECORDS SUMMARY | 2025-04-09 09:41 | XMS_ITS | Clinical Summary ---
[facility] [address] [place] [address] Care Team Providers Care Concrete Pump Operator Helper Name Role Phone Provider, No Known Primary [...] of 2) 2022 INFLUENZA VACCINE 01/01/2025 Insurance [employer] Care Teams Concrete Pump Operator Helper Relationship Specialty Start Date End Date Provider, [place] [address] PCP - General 07/23/18
== END 2025-04-07 23:59 ==
LOC: LAB.DROPOF 04-09 09:36
PROVIDERS: PCP Internal Medicine; Visit Provider Podiatrist
DX: E11.621 Type 2 diabetes mellitus with foot ulcer (principal); L97.519 Non-pressure chronic ulcer of other part of right foot with unspecified severity; Z98.890 Other specified postprocedural states
CPT/HCPCS: 87070; 87205

== ENCOUNTER 2025-05-07 09:52 | Outpatient (CLI) | payer OTHER, SELFPAY ==
--- OUTSIDE RECORDS SUMMARY | 2023-11-13 08:30 | XMS_ITS ---
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 :1970 A ge:53 Y S ex:Male Date:11/13/2023 Address:[address] [place] [address] [place], [id number] * * Electronic signature of Can Landers II, M.D. on 05/07/2025 at 08:55 AM CATALYST OPERATOR Sign off status: Pending * Provider: Mike Landers II, M.D. Date: 0 11/13/2023 Generated for Zohra poole/Angelica/Kristopher on: 1 07/08/2024 08:55 AM CATALYST OPERATOR
--- OUTSIDE RECORDS SUMMARY | 2024-03-25 08:00 | XMS_ITS ---
Author Organization [facility] ex Address [address] [place] [address] Care Team Providers Care Ironworker Foreman Name Role Phone Reyes Landers II Unavailable Oliva, Ciaran Unavailable [phone] REASON FOR VISIT PUMP REFILL Encounters Encounter Location Date Provider Diagnosis [facility] [address] [place] [address] 03/25/2024 Reyes Landers Plan Of Treatment Next Appt Details Provider Name:Reyes faustin, 06/18/2025 01:00:00 PM, [address], [address], [place], [address], Provider Name:Reyes faustin, 06/18/2025 03:30:00 PM, [address], [address], [place], [address], Progress Notes * Jeffery RONQUILLO ADOB:[birth year] (54 yo M)Acc No.[id number]:03/25/2024 Patient: Larry ETTA Jeffery Lucila Provider: Mike Landers II, M.D. :1970 A ge:53 Y S ex:Male Date:03/25/2024 Address:[address], [place] Subjective: * Chief Complaints: * 1 . PUMP REFILL. * Medical History: Objective: * Vitals: Assessment: Plan: * Treatment: * * Electronic signature of Can Landers II, M.D. on 05/07/2025 at 08:55 AM MIDDLE SCHOOL PE TEACHER Sign off status: Pending * Provider: Mike Landers II, M.D. Date: Generated for Zohra poole/Angelica/Kristopher on: 07/08/2024 08:55 AM MIDDLE SCHOOL PE TEACHER
--- OUTSIDE RECORDS SUMMARY | 2024-07-17 08:00 | XMS_ITS ---
Author Organization [facility] Address [address] [place] [address] Care Team Providers Care Horticulture Superintendent Name Role Phone Reyes Landers II Unavailable [phone] Oliva, Ciaran Unavailable [phone] REASON FOR VISIT pump refill Encounters Encounter Location Date Provider Diagnosis [facility] [address] [place] [address] 07/17/2024 Reyes Landers Plan Of Treatment Next Appt Details Provider Name:Reyes faustin, 06/18/2025 01:00:00 PM, [address], [address], [place], [address], Provider Name:Reyes faustin, 06/18/2025 03:30:00 PM, [address], [address], [place], [address], Progress Notes * Jeffery RONQUILLO ADOB:[birth year] (54 yo M)Acc No.[id number]:07/17/2024 Patient: Larry ETTA Jeffery Gaytan Provider: Mike Landers II, M.D. :1970 A ge:54 Y S ex:Male Date:07/17/2024 Address:[address], [place] Subjective: * Chief Complaints: * 1 . Pump refill. * Medical History: Objective: * Vitals: Assessment: Plan: * Treatment: * * Electronic signature of Can Landers II, M.D. on 05/07/2025 at 08:54 AM IMMIGRATION OFFICER Sign off status: Pending * Provider: Mike Landers II, M.D. Date: 0 07/17/2024 Generated for Zohra poole/Angelica/Kristopher on: 1 07/08/2024 08:54 AM IMMIGRATION OFFICER
--- OUTSIDE RECORDS SUMMARY | 2024-11-06 08:30 | XMS_ITS ---
Author Organization [facility] Address [address] [place] [address] Care Team Providers Care Camp Nurse Name Role Phone Reyes Landers II Unavailable [phone] Oliva, Ciaran Unavailable [phone] REASON FOR VISIT pump refill Encounters Encounter Location Date Provider Diagnosis [facility] [address] [place] [address] 11/06/2024 Reyes Landers Plan Of Treatment Next Appt Details Provider Name:Reyes faustin, 06/18/2025 01:00:00 PM, [address], [address], [place], [address], Provider Name:Reyes faustin, 06/18/2025 03:30:00 PM, [address], [address], [place], [address], Progress Notes * Jeffery RONQUILLO ADOB:[birth year] (54 yo M)Acc No.[id number]:11/06/2024 Patient: Larry ETTA Jeffery Gaytan Provider: Mike Landers II, M.D. :1970 A ge:54 Y S ex:Male Date:11/06/2024 Address:[address], [place] Subjective: * Chief Complaints: * 1 . Pump refill. * Medical History: Objective: * Vitals: Assessment: Plan: * Treatment: * * Electronic signature of Can Landers II, M.D. on 05/07/2025 at 08:55 AM FOREST PATHOLOGY PROFESSOR Sign off status: Pending * Provider: Mike Landers II, M.D. Date: 0 11/06/2024 Generated for Zohra poole/Angelica/Kristopher on: 1 07/08/2024 08:55 AM FOREST PATHOLOGY PROFESSOR
--- OUTSIDE RECORDS SUMMARY | 2025-02-19 10:30 | XMS_ITS ---
Author Organization [facility] ex Address [address] [place] [address] Care Team Providers Care Paintings Restorer Name Role Phone Reyes Landers II Unavailable [phone] Oliva, Ciaran Unavailable [phone] REASON FOR VISIT Pump Follow Up Encounters Encounter Location Date Provider Diagnosis [facility] [address] [place] [address] 02/19/2025 Reyes Landers Plan Of Treatment Next Appt Details Provider Name:Reyes faustin, 06/18/2025 01:00:00 PM, [address], [address], [place], [address], Provider Name:Reyes faustin, 06/18/2025 03:30:00 PM, [address], [address], [place], [address], Progress Notes * Jeffery RONQUILLO ADOB:[birth year] (54 yo M)Acc No.[id number]:02/19/2025 FollowUP Patient: Larry ETTA Jeffery Gaytan Provider: Mike Landers II, M.D. :1970 A ge:54 Y S ex:Male Date:02/19/2025 Address:[address], [place] Subjective: * Chief Complaints: * 1 . Pump Follow Up. * Medical History: Objective: * Vitals: Assessment: Plan: * Treatment: * * Electronic signature of Can Landers II, M.D. on 05/07/2025 at 08:54 AM CUTTER GRINDER Sign off status: Pending * Provider: Mike Landers II, M.D. Date: 0 02/19/2025 Generated for Zohra poole/Angelica/Kristopher on: 1 07/08/2024 08:54 AM CUTTER GRINDER
--- OUTSIDE RECORDS SUMMARY | 2025-02-24 08:30 | XMS_ITS ---
Author Organization [facility] ex Address [address] [place] [address] Care Team Providers Care Tax Senior Associate Name Role Phone Reyes Landers II Unavailable [phone] Oliva, Ciaran Unavailable [phone] REASON FOR VISIT pump refill Encounters Encounter Location Date Provider Diagnosis [facility] [address] [place] [address] 02/24/2025 Reyes Landers Plan Of Treatment Next Appt Details Provider Name:Reyes faustin, 06/18/2025 01:00:00 PM, [address], [address], [place], [address], Provider Name:Reyes faustin, 06/18/2025 03:30:00 PM, [address], [address], [place], [address], Progress Notes * Jeffery RONQUILLO ADOB:[birth year] (54 yo M)Acc No.[id number]:02/24/2025 Patient: Larry ETTA Jeffery Gaytan Provider: Mike Landers II, M.D. :1970 A ge:54 Y S ex:Male Date:02/24/2025 Address:[address], [place] Subjective: * Chief Complaints: * 1 . Pump refill. * Medical History: Objective: * Vitals: Assessment: Plan: * Treatment: * * Electronic signature of Can Landers II, M.D. on 05/07/2025 at 08:54 AM FOREMAN OR SUPERVISOR AND OPERATOR Sign off status: Pending * Provider: Mike Landers II, M.D. Date: 0 02/24/2025 Generated for Zohra poole/Angelica/Kristopher on: 1 07/08/2024 08:54 AM FOREMAN OR SUPERVISOR AND OPERATOR
--- OUTSIDE RECORDS SUMMARY | 2025-05-07 09:55 | XMS_ITS | Clinical Summary ---
Author Organization Healthcare Address [address] [place] [address] Care Team Providers Care Financial Investigator Name Role Phone Vish Barakat MD Primary Care Provider + [phone] Family History Medical History Relation Name Comments [...] of Treatment Not on file Care Teams Financial Investigator Relationship Specialty Start Date End Date Vish Barakat MD [address] [place] [address] PCP - General 10/14/20
--- OUTSIDE RECORDS SUMMARY | 2025-05-07 09:56 | XMS_ITS | Clinical Summary ---
[facility] [address] [place] [address] Care Team Providers Care Steel Placer Name Role Phone Provider, No Known Primary [...] of 2) 2022 INFLUENZA VACCINE 01/01/2025 Insurance [employer] Care Teams Steel Placer Relationship Specialty Start Date End Date Provider, [place] [address] PCP - General 07/23/18
--- OUTSIDE RECORDS SUMMARY | 2025-05-07 09:56 | XMS_ITS | Patient Health Record ---
Author Organization [facility] Address [address] [place] [address] Care Team Providers Care Fashion Consultant Sales Name Role Phone Reyes Landers II Unavailable Oliva, Ciaran Unavailable [phone] Allergies No Known Allergies Reason For Referral [...] Diagnosis [facility] [address] [place] [address] 07/17/2024 Reyes Landers [facility] [address] [place] [address] 11/06/2024 Reyes Landers [facility] [address] [place] [address] 02/24/2025 Reyes Hodgeschastity [facility] [address] [place] [address] 11/06/2024 Reyes Landers Other leak inspector (current) drug therapy Z79.899 Assessments Encounter Date Diagnosis (ICD Code) Assessment Notes Treatment Notes Treatment Clinical Notes Section Notes 11/06/2024 Other prison (current) drug therapy (ICD-10 - Z79.899) 03/25/2024 [...] Name:Reyes faustin, 06/18/2025 01:00:00 PM, [address], [address], [place], [address], Provider Name:Reyes faustin, 06/18/2025 03:30:00 PM, [address], [address], [place], [address], Insurance Providers Payer Name Payer Address Payer Phone Subscriber Number Group Number Insured Name Patient Relationship to Insured Coverage Start Date Coverage End Date R 47661 [address] [address] [place] [id number] Jeffery Ronquillo Self - patient is the insured 4 Medical (General) History Medical History History ICD Code High cholesterol Diabetes Depression Anxiety Surgical History Surgery Date(Month/Year) ITP placement/ Dr. Oconnor surgery on LT arm/ [facility] surgery on pelvis/ [facility] 2016 Hospitalization History Reason Date(Month/Year) Stayed at after surgeries 2016
--- NOTE | 2025-05-07 10:30 | CT_ITS ---
FINAL REPORT TECHNIQUE: Thin section axial images were obtained through the right lower extremity without contrast. Reconstruction images were obtained from the axial data. Exam was performed using dose reduction technique. CLINICAL HISTORY: eval for 1st Metatarsal Osteomyelitis. prior foot surgery in February. COMPARISON: 03/18/2025 FINDINGS: There has been amputation of the great toe at the first metatarsophalangeal joint. No bony destruction is identified. Specifically, the cortex of the head of the first metatarsal is intact. There is no fracture/dislocation. There is mild multijoint degenerative disease. There is soft tissue edema of the medial forefoot, most pronounced along the head of the first metatarsal. No loculated fluid collection is identified. There is no foreign body. No subcutaneous air is seen. IMPRESSION: No CT evidence of osteomyelitis. Soft tissue edema of the medial forefoot most consistent with cellulitis. No fluid collection to suggest abscess. Reviewed, Interpreted and Dictated by Zuleika Hernandez MD Transcribed by Bethany Dumont Authenticated and [facility]
== END 2025-05-07 23:59 | disposition home or self-care (01) ==
LOC: RAD 09:52
PROVIDERS: PCP Internal Medicine; Visit Provider Podiatrist
DX: E11.621 Type 2 diabetes mellitus with foot ulcer (principal); L97.411 Non-pressure chronic ulcer of right heel and midfoot limited to breakdown of skin; M86.671 Other chronic osteomyelitis, right ankle and foot; Z98.890 Other specified postprocedural states; R93.6 Abnormal findings on diagnostic imaging of limbs
CPT/HCPCS: 73700

== ENCOUNTER 2025-05-11 09:34 | Outpatient (CLI) | payer OTHER, SELFPAY ==
[2025-05-11 10:08] LABS: Hematocrit 47.5 % (42.0-52.0); Hemoglobin 16.2 g/dL (14.1-18.0); Immature Granulocytes % 0.4 %; Mean Corpuscular HGB Conc 34.1 g/dL (31.8-35.4); Mean Corpuscular Hemoglobin 29.6 pg (27.0-31.2); Mean Corpuscular Volume 86.8 fl (80-94); Nucleated Red Blood Cells % 0 %; Platelet Count 54 K/mm3 (142-424); Red Blood Count 5.47 M/mm3 (4.60-6.20); Red Cell Distribution Width-SD 40.0 fL; White Blood Count 7.7 K/mm3 (4.8-10.8)
[2025-05-11 10:38] LABS: Alanine Aminotransferase 32 U/L (12-78); Albumin Level 4.6 g/dl (3.5-5.0); Albumin/Globulin Ratio 1.4 (1.1-1.8); Alkaline Phosphatase 103 U/L (38-126); Anion Gap 17.5 mEq/L (5-15); Aspartate Amino Transferase 28 U/L (17-59); Bilirubin,Total 0.7 mg/dl (0.2-1.3); Blood Urea Nitrogen 15 mg/dl (9-20); Calcium 10.0 mg/dl (8.4-10.2); Carbon Dioxide 27 mmol/L (22.0-30.0); Chloride 100 mmol/L (98-107); Creatinine,Serum 0.80 mg/dl (0.66-1.25); Estimated Glomerular Filt Rate 102 ml/min (>60); GFR (African American) 123 ML/MIN (>60); Globulin 3.3 g/dL (1.3-3.2); Glucose 169 mg/dl (74-100); Potassium 4.5 mmoL/L (3.5-5.1); Sodium 140 mmol/L (136-145); Total Protein,Serum 7.9 g/dl (6.3-8.2)
[2025-05-11 10:43] LABS: C-Reactive Protein 1.7 mg/L (0-4)
[2025-05-11 10:50] LABS: Hemoglobin A1C 8.2 % (4.0-6.0)
== END 2025-05-11 23:59 | disposition home or self-care (01) ==
LOC: LAB 09:35
PROVIDERS: PCP Internal Medicine; Visit Provider Podiatrist
DX: E11.621 Type 2 diabetes mellitus with foot ulcer (principal); L97.411 Non-pressure chronic ulcer of right heel and midfoot limited to breakdown of skin; R23.4 Changes in skin texture
CPT/HCPCS: 36415; 80053; 83036; 85025; 85651; 86140